=== PATIENT | male | born 1965 | race Caucasian/White ===

== ENCOUNTER → 2020-09-27 08:17 | Outpatient (BNVA) | payer BC, SELFPAY | PROVIDERS: PCP Family Medicine; Referring Provider Family Medicine; Visit Provider Specialist | DX: M25.562 Pain in left knee (principal); M25.462 Effusion, left knee | CPT/HCPCS: 73560; 73565 ==

== ENCOUNTER 2020-10-11 13:01 | Outpatient (CLI) | payer BC, SELFPAY ==
--- NOTE | 2020-10-11 13:45 | MR_ITS ---
WS: [id number] MRI LEFT KNEE HISTORY: M25.562 - Pain in left knee COMPARISON: 09/27/2020 Anterior cruciate ligament: Abnormal ACL. There is increased T2 signal throughout the proximal and di stal ACL. The posterior fibers are not evident in the distal ACL. There is increased T2 signal in the proximal ACL. Posterior cruciate ligament: Intact. Medial collateral ligament: Mild displacement by osteophytes and extruded disc. Posterior lateral corner structures: Intact. Medial menisci: Abnormal shape and signal with a small caliber posterior horn. The anterior horn is e xtruded. Lateral meniscus: Intrasubstance degeneration. No definite tears. Extensor mechanism: Distal quadriceps tendon and patellar tendons are intact. Fluid and soft tissue: Moderate-sized suprapatellar joint effusion. There is mild soft tissue edema s urrounding the knee, greatest medially. No Washington's cyst. Osseous and articular structures: Patellofemoral compartment: Mild osteophytes along the joint line. No marrow edema or full-thickness cartilage defect. Moderate osteoarthritis at the joint line. Medial compartment: Severe narrowing of the medial compartment with complete loss of cartilage. There is bone upon bone with moderate amount of marrow edema on both sides of the joint. Osteophytes and e xtruded meniscus. Lateral compartment: Mild narrowing of the lateral compartment. Joint line osteophytes with very mild thinning of the cartilage and fissuring. Moderate amount of marrow edema in the femoral condyle towa rds the intercondylar notch and also at the tibial spine. MR/MR knee LT wo con* [id number] IMPRESSION: 1. Severe internal derangement medial compartment. 2. Complete loss of cartilage with severe joint space narrowing, marrow edema, osteophytes and extruded and torn menisci in the medial compartment. 3. Additional marrow edema in the lateral femoral condyle towards the intercon dylar notch and the lateral tibial spine. 4. Abnormal ACL. High-grade tear distally and intrasubstance degeneration vers us additional tear proximally. 5. Moderate suprapatellar joint effusion. 6. Moderate patellofemoral joint osteophytosis.
== END 2020-10-11 13:02 | disposition home or self-care (01) ==
LOC: RADSHAW 13:03
PROVIDERS: PCP Family Medicine; Visit Provider Specialist
DX: M25.562 Pain in left knee (principal); M25.462 Effusion, left knee; S86.812A Strain of other muscle(s) and tendon(s) at lower leg level, left leg, initial encounter; X58.XXXA Exposure to other specified factors, initial encounter; M23.92 Unspecified internal derangement of left knee
CPT/HCPCS: 73721

== ENCOUNTER → 2022-04-14 10:18 | Outpatient (BNVA) | payer BC, SELFPAY | PROVIDERS: PCP Family Medicine; Visit Provider Nurse Practitioner Family | DX: J35.1 Hypertrophy of tonsils (principal) | CPT/HCPCS: 87071; 87880 ==

== ENCOUNTER → 2022-05-01 17:06 | Outpatient (BNVA) | payer BC, SELFPAY | PROVIDERS: PCP Family Medicine; Visit Provider Nurse Practitioner Family | DX: R50.9 Fever, unspecified (principal); Z20.822 Contact with and (suspected) exposure to COVID-19 | CPT/HCPCS: 87400; 87426 ==

== ENCOUNTER 2022-10-31 15:16 | Outpatient (CLI) | payer OTHER, SELFPAY ==
--- NOTE | 2022-10-31 15:32 | CT_ITS ---
WS: [id number] CT NECK TECHNIQUE: Contrast-enhanced CT of the neck with coronal and sagittal reformatted images. CLINICAL INFORMATION: ENLARGED/HARD TONSIL COMPARISON: None. DLP: 225.[address] scans at [facility] use at least one of these dose optimization techniques: automated e xposure control; mA and/or kV adjustment per patient size (includes targeted exams where dose is matc hed to clinical indication); or iterative reconstruction. FINDINGS: Heterogeneously enhancing mass involving the RIGHT tongue base extending to involve the RIGHT palatin e tonsil and parapharyngeal fat. This involves the pharyngeal mucosal space and uvula. Enlarged heter ogeneously enhancing RIGHT tonsil. Findings suspicious for carcinoma. Focal enhancing lesion at tongu e base measures approximately 2.0 x 1.7 cm. Enlarged RIGHT cervical chain lymph nodes suspicious for metastatic disease including RIGHT submandibular, RIGHT level 2, RIGHT level 3, and small lymph nodes in the RIGHT posterior triangle. Largest cluster of lymph nodes RIGHT level 2. Enlarged enhancing LE FT palatine tonsil. Findings can be further evaluated PET/CT Recommend direct visualization and ENT consultation. Mastoid air cells and paranasal sinuses are well aerated. Parotid glands are normal. Normal submandibular glands. Normal thyroid gland. Lung apices are well ae rated. Mild spondylitic changes cervical spine. CT/CT neck w con* [id number] IMPRESSION: 1. Heterogeneously enhancing RIGHT tongue base and palatine tonsil lesion susp icious for carcinoma. Recommend direct visualization and ENT consultation. 2. Numerous enlarged RIGHT cervical chain lymph nodes worse involving RIGHT schumacher bmandibular, level 2-3 suspicious for metastatic disease. Recommend PET/CT for staging. 3. Normal glottis and subglottic airway.
[2022-10-31] MEDS: iohexol 350 mg/mL 500 mL Btl (per mL) IV (16:02)
== END 2022-10-31 15:17 | disposition home or self-care (01) ==
LOC: RAD 15:21
PROVIDERS: PCP Family Medicine; Visit Provider Family Medicine
DX: J35.1 Hypertrophy of tonsils (principal); K14.9 Disease of tongue, unspecified; R59.0 Localized enlarged lymph nodes
CPT/HCPCS: 70491; Q9967

== ENCOUNTER → 2022-11-14 14:10 | Outpatient (BNVA) | payer OTHER, SELFPAY | PROVIDERS: PCP Family Medicine; Visit Provider Thoracic Surgery (Cardiothoracic Vascular Surgery) | DX: I83.90 Asymptomatic varicose veins of unspecified lower extremity (principal); Z87.891 Personal history of nicotine dependence | CPT/HCPCS: 99202 ==

== ENCOUNTER 2022-11-24 13:09 | Outpatient (CLI) | payer OTHER, SELFPAY ==
--- NOTE | 2022-11-24 13:30 | USCV_ITS ---
Chalo Oakes Age: 57 Gender: M : 1965 Exam Date: 11/24/2022 13:57 Ordering Phys: Navid Centeno MD (Andy) ([email or web address] [place]) Technologist: ELIZ Exam Location: [facility] Indication: HISTORY: PROCEDURES: FINDINGS: Venous reflux was noted in the popliteal veins bilaterally with a reflux time of 2.94 seconds on the right and 2.69 seconds on the left Venous reflux was noted in the superficial veins on the left side, involving the mid and distal segments of the greater saphenous vein. The reflux time 2.51 and 1.12 seconds respectively. There is diameter was 0.24 and 0.19 cm. The segments were at a depth of 0.29 and 0.25 cm from the surface. The left greater saphenous vein segment distal to the saphenofemoral junction was found to have a reflux time of 528 ms, with a diameter of 0.83 cm and at a depth of 1.66 cm CONCLUSIONS 1. No evidence of DVT in the above-mentioned identifiable veins. 2. Significant venous reflux of greater than 1000 ms were noted in both popliteal veins 3. Significant venous reflux of greater than 500 milliseconds were noted in the greater saphenous vein on the left side, involving the greater saphenous vein distal to the saphenofemoral junction, mid and distal greater saphenous vein segments. The mid and distal saphenous vein segments were found to be a small caliber and very superficial. Dr Екатерина Bro MD [facility] (Electronically Signed) Final Date: 30 November 2022 18:08 S
== END 2022-11-24 13:10 | disposition home or self-care (01) ==
LOC: RAD 13:10
PROVIDERS: PCP Family Medicine; Visit Provider Thoracic Surgery (Cardiothoracic Vascular Surgery)
DX: I83.93 Asymptomatic varicose veins of bilateral lower extremities (principal); G90.523 Complex regional pain syndrome I of lower limb, bilateral
CPT/HCPCS: 93970

== ENCOUNTER 2022-12-26 10:47 | Outpatient (CLI) | payer OTHER, SELFPAY ==
[2022-12-26 11:44] LABS: Basophils # 0.1 10^3/uL (0.0-0.1); Basophils % 1.5 %; Eosinophils # 0.2 10^3/uL (0.0-0.8); Eosinophils % 7.2 %; Hematocrit 42.8 % (42.0-52.0); Hemoglobin 13.7 g/dL (11.7-16.6); Lymphocytes # 2.1 10^3/uL (0.8-4.8); Lymphocytes % 64.1 %; Mean Corpuscular Hemoglobin 29.3 pg (28.0-34.0); Mean Corpuscular Volume 91.5 fl (80-94); Mean Platelet Volume 9.5 fL (7.4-10.4); Monocytes # 0.8 10^3/uL (0.2-0.9); Monocytes % 23.4 %; Neutrophils % 3.8 %; Nucleated Red Blood Cells % 0 %; Platelet Count 295 10^3/cmm (130-400); Red Blood Count 4.68 10^6/uL (4.1-5.3); Red Cell Distribution Width 13.3 % (12.1-15.1); White Blood Count 3.3 10^3/uL (4.0-10.0)
[2022-12-26 12:12] LABS: Anion Gap 14.8 (5-19); Blood Urea Nitrogen 19 mg/dL (6-20); Calcium 8.9 mg/dL (8.5-10.5); Carbon Dioxide 25 mmol/L (22-29); Chloride 102 mmol/L (98-107); Glomerular Filtration Rate 99.6 mL/min (90-130); Glucose 86 mg/dL (65-115); Osmolality Calculated 286 mOsm/kg (285-295); Potassium 4.8 mmol/L (3.5-5.1); Sodium 137 mmol/L (136-145)
[2022-12-26 17:06] LABS: Neutrophils # 0.13 10^3/uL (1.8-7.7)
== END 2022-12-26 10:48 | disposition home or self-care (01) ==
PROVIDERS: PCP Family Medicine; Visit Provider Specialist
DX: D37.09 Neoplasm of uncertain behavior of other specified sites of the oral cavity (principal)
CPT/HCPCS: 36415; 80048; 85025; 93005

== ENCOUNTER 2023-01-03 14:19 | Outpatient (CLI) | payer OTHER, SELFPAY ==
[2023-01-08 06:29] LABS: Lymphoma Profile (BBPL) See Report
[2023-01-11 10:24] LABS: PD-L1 (Clone 22C3) by IHC BBPL See Report
== END 2023-01-03 14:20 | disposition home or self-care (01) ==
LOC: LAB 14:21
PROVIDERS: PCP Family Medicine; Visit Provider Specialist
DX: Z01.812 Encounter for preprocedural laboratory examination (principal); J03.91 Acute recurrent tonsillitis, unspecified
CPT/HCPCS: 88184; 88185; 88304; 88331; 88341; 88342

== ENCOUNTER 2023-01-22 05:52 | Outpatient (CLI) | payer OTHER, SELFPAY ==
--- NOTE | 2023-01-20 | PETR_ITS ---
PROCEDURE INFORMATION: Exam: PET/CT Skull Base to Mid-thigh Exam date and time: 01/20/2023 12:05 PM Age: 57 years old Clinical indication: Condition or disease; Primary cancer: Malignant neoplasm of overlapping sites of tonsil; Initial oncological staging LABS AND CLINICAL REPORTS: Glucose: 95 mg/dl Treatment strategy for malignancy (PET staging): Initial Staging (PI) TECHNIQUE: Imaging protocol: Following at least four-hour fasting and following the injection of radiopharmaceutical, low dose CT images were obtained. Then, PET images were obtained. Attenuation corrected images were constructed using the CT scan. Fused images of PET and CT were reviewed. The standardized uptake values (SUV) reported below are maximum values within a region of interest, expressed in gm/ml. Exam includes orbital meatal line to mid-thigh. Radiopharmaceutical: 11.57 mCi F-18 FDG (Fluorodeoxyglucose), IV. Time of imaging post radiopharmaceutical administration: 1 hour Injection site: Right antecubital COMPARISON: CT neck w con* [id number] 10/31/2022 3:57 PM FINDINGS: Brain: Visualized brain has normal physiologic uptake. Pharynx: Bilateral palatine tonsillar uptake is noted, SUV max 9.0 on the right and 7.6 on the left. Larynx: No abnormal uptake. Lungs, pleura and trachea: No abnormal uptake. Heart: Normal physiologic uptake. Mediastinal space: No abnormal uptake. Liver: No abnormal uptake. Gallbladder and bile ducts: No abnormal uptake. Pancreas: No abnormal uptake. Spleen: No abnormal uptake. Adrenal glands: No abnormal uptake. Kidneys and ureters: Normal physiologic uptake. Stomach and bowel: No abnormal uptake. There are scattered colonic diverticula. Vasculature: No abnormal uptake. Mild atherosclerotic calcifications. Lymph nodes: There are radiotracer avid right-sided cervical lymph nodes. Examples: Deep to the right sternocleidomastoid muscle measuring 2.0 x 1.0 cm on series 3, image 40, SUV max 9.3; along the posterosuperior aspect of the right submandibular gland measuring 1.5 cm in diameter on series 3, image 43, SUV max 5.3. Mediastinal and right hilar non radiotracer avid small calcified lymph nodes are present compatible with a benign finding. Bones/joints: No abnormal uptake in the visualized axial and appendicular skeleton. There is mild diffuse vertebral body spondylosis. Soft tissues: There is an ill-defined focus of elevated uptake tongue involves the right parapharyngeal soft tissues adjacent to the base of the tongue, SUV max 12.6. METRICS: Mediastinal blood pool: SUV max 2.2 Liver uptake: SUV max 3.6 PET/PET [facility] INITIAL [id number] assessment IMPRESSION: 1. Elevated uptake in the right parapharyngeal soft tissues adjacent to and possibly involving the base of the tongue is noted (SUV max 12.6) concerning for malignancy. 2. Radiotracer avid right-sided cervical lymph nodes are noted, likely metastatic. 3. Bilateral palatine tonsillar uptake is elevated which may be inflammatory, infectious or neoplastic in etiology. 4. Colonic diverticulosis. 5. Additional nonurgent findings as detailed above.
== END 2023-01-22 05:53 | disposition home or self-care (01) ==
LOC: RAD 05:53
PROVIDERS: PCP Family Medicine; Visit Provider Specialist
DX: C09.8 Malignant neoplasm of overlapping sites of tonsil (principal); K57.90 Diverticulosis of intestine, part unspecified, without perforation or abscess without bleeding
CPT/HCPCS: 78815; A9552

== ENCOUNTER 2023-01-29 16:00 | Oncology outpatient (recurring) (ONCR) | payer OTHER, SELFPAY ==
--- NOTE | 2023-01-18 16:58 | N.ONRAD NP_ITS ---
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 Radiotherapy to date: Summary > No prior radiation therapy. Chief Complaint / History of Present Illness: He had sore throat and noted swollen tonsils. Treated with two courses of antibiotics with no improvement. Stable weight appetite and energy level. Seen by ENT. CT neck 10/31/2022 Enhancing right tonsillar and tongue base mass, enhancing left tonsil, right cervical adenopathy with at least 3 nodes none more than 2 cm size. Bilateral simple tonsillectomies Right tonsil 3.2 cm max size. Squamous cell carcinoma HPV p16 positive. Left tonsil benign. He has had some weight loss since tonsillectomy. Sore throat and oral intake improving. 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 He had routine dental evaluation two weeks ago which was satisfactory. Now scheduled to see a surgeon in [place] to consider definitive surgery. Current Medications: meloxicam 15 mg PO DAILY Allergies: NKA Medical History: No history of collagen vascular disease. No previous radiation therapy. Surgical History: Left knee surgery, left ankle skin graft surgery. Family History: Not obtained. Social History: second time x 9 years. 4 children and 2 step children. Quit smoking and and tobacco chewing 7 years ago, quit drinking 5 years ago.Works in [employer] here in [place]. 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 Enjoys fishing and is active in his latter day. Smoking and tobacco status: former smoker (quit 15 years ago ) Quit status (tobacco): has quit using tobacco Year quit tobacco: 15 years ago Second hand smoke exposure: No Alcohol intake: never Substance/Drug Use: never Household members: spouse Marital status: Current Complaints / Review of Systems: . Vital Signs: Performed on 01/18/2023 1:21 PM BMI - 28.727 kg/m2 (high), Height - 76 in, Weight - 236 lbs, Temperature - 97.9 f, Pulse - 62 /min, Respiration - 18 /min, O2 Sat - 95 % (low), Pain - 2, Fatigue - 0 and BP - 114/ 78 mm(hg). Physical Exam: Alert in NAD. Oral cavity healing tonsillectomy resection beds with granulating mucosa in both sites. Good dentition with normal mucosa and gingiva. 2 cm or so right upper cervical jugulo-digastric lymph node. Left neck and bilateral supraclav enzo regions clear. Performance Status: ECOG PS 0 ??? 1. Pathology: See above. Imaging: See HPI Impression: Favorable St I(T2 N0 M0) HPV p16+ squamous cell carcinoma of right tonsil and tongue base. I recommend definitive radiation to primary and involved nodes to 70 Gy and 54 Gy to 60 Gy to uninvolved inferior right neck, left neck and bilateral supraclavicular regions with sensitizing cisplat chemotherapy. I did not see a role for additional surgery as this presentation with HPV p16 positive disease has an anticipated excellent response with chemo-radiation. He will need to complete dental care with fluoridation trays. Med onc eval for cisplat administration and port placement. Staging PET/CT to complete disease assessment Return here for simulation Discussed the potential use of PEG tube placement. Given his excellent health, minimal weight loss and healthy lifestyle, we will plan to treat with no PEG tube placement adding a PEG only if symptoms require it. Thorough discussion with patient and . Plan: Signed by: 01/18/2023 4:56:47 PM <<Signature on File>> Time spent with patient: CPT Code: CPT Code:
== END 2023-02-01 23:59 | disposition home or self-care (01) ==
PROVIDERS: PCP Family Medicine; Visit Provider Radiology Radiation Oncology
DX: C06.89 Malignant neoplasm of overlapping sites of other parts of mouth (principal); C77.0 Secondary and unspecified malignant neoplasm of lymph nodes of head, face and neck; Z87.891 Personal history of nicotine dependence; Z53.9 Procedure and treatment not carried out, unspecified reason
CPT/HCPCS: 99205

== ENCOUNTER 2023-02-18 15:02 | Observation (INO) | payer OTHER, SELFPAY ==
[2023-02-18] VITALS (10 sets, daily range): BP systolic 97–144; BP diastolic 62–105; PULSE 54–119; RESP 16–24; O2SAT 87–100; BMI 26.6
[2023-02-18 15:45] LABS: Basophils # 0.1 10^3/uL (0.0-0.1); Basophils % 0.7 %; Eosinophils # 0.2 10^3/uL (0.0-0.8); Eosinophils % 2.1 %; Hematocrit 41.2 % (37-53); Lymphocytes # 3.1 10^3/uL (0.8-4.8); Lymphocytes % 38.6 %; Mean Corpuscular HGB Conc 31.6 g/dL (30-55); Mean Corpuscular Hemoglobin 28.4 pg (27-33); Mean Corpuscular Volume 90.2 fl (82-101); Mean Platelet Volume 9.3 fL (7.4-10.4); Monocytes # 0.5 10^3/uL (0.2-0.9); Monocytes % 5.9 %; Neutrophils # 4.21 10^3/uL (1.8-7.7); Neutrophils % 52.5 %; Nucleated Red Blood Cells % 0 %; Platelet Count 409 10^3/cmm (157-399); Red Blood Count 4.57 10^6/uL (3.85-5.65); Red Cell Distribution Width 12.9 % (12.1-15.1); White Blood Count 8.03 10^3/uL (3.29-11.43)
--- NOTE | 2023-02-18 15:46 | PC.PHAR ---
pts verified pts medications-states the pt has mobic 15mg daily but hasnt taken since around jan 02 2023 ext med history shows last filled 09/20/22 90d/s-
[2023-02-18 15:57] LABS: Partial Thromboplastin Time 28.2 SECONDS (23.9-36.7)
[2023-02-18 16:07] LABS: Alanine Aminotransferase 11 U/L (0-41); Albumin Level 4.1 g/dL (3.5-5.2); Alkaline Phosphatase 102 U/L (40-130); Anion Gap 17.5 (5-19); Aspartate Amino Transferase 11 U/L (0-40); Blood Urea Nitrogen 24 mg/dL (6-20); Calcium 9.3 mg/dL (8.5-10.5); Carbon Dioxide 25 mmol/L (22-29); Chloride 104 mmol/L (98-107); Globulin 3.6 g/dL (1.3-4.6); Glomerular Filtration Rate 56.9 mL/min (90-130); Glucose 128 mg/dL (65-115); Osmolality Calculated 300 mOsm/kg (285-295); Potassium 4.5 mmol/L (3.5-5.1); Sodium 142 mmol/L (136-145); Total Bilirubin 0.4 mg/dL (0.15-1.2); Total Protein 7.7 g/dL (6.6-8.7)
[2023-02-18 16:08] LABS: Lactic Sepsis W/Reflex 1.2 mmol/L (0.5-2.2)
[2023-02-18] MEDS: oxymetazoline 0.05% Nasal Spray 15 mL 2 SPRAY NOSTRIL-B ×2 (16:24→16:25)
--- NOTE | 2023-02-18 16:38 | PM.CONSULT ---
Providers/Reason For Consult Consulting Physician/Specialty*: Dr. Ho Scherer MD Otolaryngology, Head & Neck Surgery Reason for Consult*: Oral bleeding Requesting Physician: KIERAN MARRUFO Primary Care Provider: Griselda Rahman MD History of Present Illness History of Present Illness Chalo Oakes is a 57 year old male who has a h/o a right tonsil SCCA who underwent a right radical tonsillectomy/Right neck dissection 2 weeks ago. The patient reports that he coughed at 14:30 this afternoon after which the patient developed copious oral bleeding. I was consulted to control his oral bleeding. Review of Systems General: Reports: 10 or more systems reviewed and unremarkable except in HPI and below Medications/Allergies Home Medications Medication Instructions Recorded Confirmed Last Taken Type amoxicillin 875 mg-potassium 1 tab PO BID 02/18/23 02/18/23 02/18/23 History clavulanate 125 mg tablet ibuprofen 200 mg tablet 1,000 mg PO Q6H PRN Pain 02/18/23 02/18/23 02/18/23 History meloxicam 15 mg tablet 15 mg PO DAILY PRN Pain 02/18/23 02/18/23 01/02/23 History not taken for a whil oxycodone 5 mg tablet 5 mg PO Q4H PRN Pain 02/18/23 02/18/23 Unknown History Allergies Allergy/AdvReac Type Severity Reaction Status Date / Time No Known Allergies Allergy Verified 02/18/23 15:45 PFSH Acute PFSH: Medical History (Updated 02/18/23 @ 16:45 by Ho Scherer MD) Varicose veins of lower extremity Social History (Updated 11/14/22 @ 14:56 by Vandana Ramirez LPN) Smoking and tobacco status: former smoker (quit 15 years ago ) Quit status (tobacco): has quit using tobacco Year quit tobacco: 15 years ago Second hand smoke exposure: No Alcohol intake: never Substance/Drug Use: never Adopted: Yes Household members: spouse Marital status: Pets and animals: Yes Pets & animals: cat(s) and dog(s) Vitals/I&O/Wt Last Vital Signs Pulse 108 H 02/18/23 15:29 Resp 18 02/18/23 15:29 BP 130/96 02/18/23 15:29 Pulse Ox 97 02/18/23 15:29 O2 Del Method Room Air 02/18/23 15:29 Weight last 48 hrs Weight 99.337 kg Physical Exam Const: COMMON NORMALS: patient oriented x3 HENMT: COMMON NORMALS: atraumatic and hearing grossly normal bilaterally HEAD & SCALP: atraumatic FACE & SINUS: normal facial exam MOUTH: other (There is copious oral bleeding - unable to determine the location.) Neck/C-Spine: COMMON NORMALS: no lymphadenopathy OTHER: Well healed right neck incision. Chest: COMMONS NORMALS: normal inspection of the chest Resp: COMMON NORMALS: No use of accessory muscles and clear to auscultation bilaterally AUSCULTATION: clear to auscultation bilaterally Cardio: COMMON NORMALS: regular rate, regular rhythm and No murmurs present (Cardio) RATE: regular rate RHYTHM: regular rhythm GI: COMMON NORMALS: Normal to inspection, nondistended, normoactive bowel sounds present Extremity: COMMON NORMALS: normal to inspection Neuro: COMMON NORMALS: patient oriented x3 Data 02/18/23 15:10 02/18/23 15:10 A&P Assessment and plan (1) Tonsillar bleed: Impression: Right post tonsillectomy bleeding Plan: - Surgical control of right oral cavity bleeding under general anesthesia. I discussed this with the patient and his family and explained the potential complications. They expressed understanding and wish to proceed. Consult Attestations Medical Necessity Statement: I was consulted to assist in control of this bleeding. Coding Level of Care Code Acute Code for g Fwd Diagnoses Tonsillar bleed J35.8
[2023-02-18] MEDS: sodium chloride 0.9% 1,000 ML 999 ML IV ×2 (16:47→17:09)
[2023-02-18 16:50] LABS: Basophils % 0.4 %; Eosinophils # 0.1 10^3/uL (0.0-0.8); Eosinophils % 1.3 %; Hematocrit 35.6 % (37-53); Lymphocytes # 1.7 10^3/uL (0.8-4.8); Lymphocytes % 18.2 %; Mean Corpuscular HGB Conc 32.6 g/dL (30-55); Mean Corpuscular Hemoglobin 29.2 pg (27-33); Mean Corpuscular Volume 89.7 fl (82-101); Mean Platelet Volume 9.2 fL (7.4-10.4); Monocytes # 0.5 10^3/uL (0.2-0.9); Monocytes % 5.6 %; Neutrophils % 74.2 %; Nucleated Red Blood Cells % 0 %; Platelet Count 385 10^3/cmm (157-399); Red Blood Count 3.97 10^6/uL (3.85-5.65); Red Cell Distribution Width 12.8 % (12.1-15.1)
--- NOTE | 2023-02-18 16:51 | PC.NURSE ---
PATIENT SUCTION CANISTER FILLED WITH 700 ML, 500 ML BLOOD, 200 ML WATER FROM CLEANING SUCTION TUBING. AFTER AFRIN AND TXA, PROVIDER REMOVED BLOOD CLOTS AND ENT ARRIVED. AFTER PROVIDER LEFT, PATIENT BECAME COOL, PALE, AND DIAPHORETIC AND STATES I JUST NEED TO SLEEP. PATIENT APPEARS LETHARGIC. 2 L OF NS STARTED AT 1645. EMERGENCY BLOOD TRANSFUSION STARTED AT 1651. 1651: HR 77, RR 18, TEMP 97.8 AXILLARY, O2 92%, BP 117/81 1656: HR 70, RR 18, TEMP 97.7 AXILLARY, O2 94%, BP 109/84, PATIENT STATES HE FEELS BETTER.
--- NOTE | 2023-02-18 16:55 | ED.PEDHENT ---
HPI - Pediatric HENT General: Chief complaint: Dental/Oral Stated complaint: tonsilectomy/stitches ripped Time Seen by Provider: 02/18/23 15:08 History of Present Illness: 57-year-old male presents emergency room with significant postop bleeding. According to patient's patient had tonsillectomy and throat cancer removed on the fifth of this month at [facility] in [place]. Continues patient has been doing okay until few hours ago when he started bleeding profusely. Upon present emergency room patient able to speak due to large blood clot in his mouth. Patient is awake alert without any obvious acute distress. Pediatric ROS Review of Systems: ROS UNOBTAINABLE: other (Active bleeding) PFS ED PFSH: Medical History (Updated 02/20/23 @ 00:02 by BIA Tracy) Varicose veins of lower extremity Social History (Updated 11/14/22 @ 14:56 by Vandana Ramirez LPN) Smoking and tobacco status: former smoker (quit 15 years ago ) Quit status (tobacco): has quit using tobacco Year quit tobacco: 15 years ago Second hand smoke exposure: No Alcohol intake: never Substance/Drug Use: never Adopted: Yes Household members: spouse Marital status: Pets and animals: Yes Pets & animals: cat(s) and dog(s) Pediatric Exam Const: Constitutional General: cooperative, well developed, alert and awake HENMT: Mouth: other (Mouth is full of large clot unable to visualize the tonsillar area or poste) Neck: Neck: normal visual inspection, full ROM, no lymphadenopathy and no meningeal signs Chest: Chest: normal inspection of the chest Resp: Effort & Inspection: normal respiratory effort and able to speak in complete sentences Cardio: Jugular venous distension: no JVD Palpation: normal PMI Rate: regular rate Rhythm: regular rhythm Heart sounds: S1 normal heart sound present and S2 normal heart sound present GI: Inspection: Yes normal to inspection, No abdominal distension, No fistulous tract, No incision and No Laceration(s) present (GI) Skin: General: no rashes or lesions noted, turgor normal, no mottling, no purpura and No pallor Wounds: no fistulous tracts Neuro: General: Yes No meningeal signs Course Reevaluation(s): Reevaluation #1: Upon reassessment patient appears to be stable without any acute distress patient appears to be diaphoretic after significant bleeding. Blood transfusion was started. Reevaluation #2: At 4:[address] Crowe at bedside and will take patient to the OR for further evaluation and treatment. Consultations: Consultation #1: At 3 PM spoke with local ENT Consultation #2: at [address] Vazquez at [facility] in [place]. Recommended Afrin application and tranxanuc acid neb. I discussed this with the pharmacist and apparently we do not have nebulizer formula in this ER. She was given IV medication. Consultation #3: At 3:40 PM I discussed the patient with Dr. Vazquez again to inform her that the ENT will be come to see patient and will keep him up-to-date about further treatment. Vital Signs: Vital signs: Vital Signs Pulse Rate 64 02/19/23 07:56 Respiratory Rate 24 H 02/19/23 07:56 Blood Pressure 120/91 02/19/23 07:56 Pulse Oximetry 96 02/19/23 07:56 Oxygen Delivery Me thod Room Air 02/18/23 18:02 Medical Decision Making Medical Decision Making Patient was made comfortable emergency room and underwent continuous monitoring by nurse. The large blood clot from his was evacuated with some suctioning. I discussed patient with Dr. Vazquez from [facility]. Edilia patient with our local ENT. Discussed patient and plan/treatment with family and friends. Differential Diagnosis Acute bleed, tonsillectomy bleed, Lab Data 02/19/23 05:28 02/18/23 16:54 Laboratory Results WBC 9.30 10^3/uL (3.29-11.43) 02/18/23 16:40 RBC 3.97 10^6/uL (3.85-5.65) 02/18/23 16:40 Hgb 11.60 g/dL (11.27-16.99) 02/18/23 16:40 Hct 35.6 % (37-53) L 02/18/23 16:40 MCV 89.7 fl (82-101) 02/18/23 16:40 MCH 29.2 pg (27-33) 02/18/23 16:40 MCHC 32.6 g/dL (30-55) 02/18/23 16:40 RDW 12.8 % (12.1-15.1) 02/18/23 16:40 Plt Count 385 10^3/cmm (157-399) 02/18/23 16:40 MPV 9.2 fL (7.4-10.4) 02/18/23 16:40 Neut % (Auto) 74.2 % 02/18/23 16:40 Lymph % (Auto) 18.2 % 02/18/23 16:40 Amador % (Auto) 5.6 % 02/18/23 16:40 Eos % (Auto) 1.3 % 02/18/23 16:40 Baso % (Auto) 0.4 % 02/18/23 16:40 Neut # (Auto) 6.90 10^3/uL (1.8-7.7) 02/18/23 16:40 Lymph # (Auto) 1.7 10^3/uL (0.8-4.8) 02/18/23 16:40 Amador # (Auto) 0.5 10^3/uL (0.2-0.9) 02/18/23 16:40 Eos # (Auto) 0.1 10^3/uL (0.0-0.8) 02/18/23 16:40 Baso # (Auto) 0.0 10^3/uL (0.0-0.1) 02/18/23 16:40 Nucleated RBC % (auto) 0 % 02/18/23 16:40 Nucleated RBCs # 0.0 /100WBC 02/18/23 16:40 APTT 28.2 SECONDS (23.9-36.7) 02/18/23 15:10 Sodium 142 mmol/L (136-145) 02/18/23 16:54 Potassium 4.2 mmol/L (3.5-5.1) 02/18/23 16:54 Chloride 109 mmol/L (98-107) H 02/18/23 16:54 Carbon Dioxide 24 mmol/L (22-29) 02/18/23 16:54 Anion Gap 13.2 (5-19) 02/18/23 16:54 BUN 26 mg/dL (6-20) H 02/18/23 16:54 Creatinine 1.3 mg/dL (0.7-1.2) H 02/18/23 16:54 GFR Calculation 56.9 mL/min (90-130) L 02/18/23 16:54 Glucose 181 mg/dL (65-115) H 02/18/23 16:54 Calculated Osmolality 303 mOsm/kg (285-295) H 02/18/23 16:54 Lactic Acid 1.2 mmol/L (0.5-2.2) 02/18/23 15:10 Calcium 8.5 mg/dL (8.5-10.5) 02/18/23 16:54 Total Bilirubin 0.2 mg/dL (0.15-1.2) 02/18/23 16:54 AST 8 U/L (0-40) 02/18/23 16:54 ALT 8 U/L (0-41) 02/18/23 16:54 Alkaline Phosphatase 80 U/L (40-130) 02/18/23 16:54 Total Protein 6.5 g/dL (6.6-8.7) L 02/18/23 16:54 Albumin 3.6 g/dL (3.5-5.2) 02/18/23 16:54 Globulin 2.9 g/dL (1.3-4.6) 02/18/23 16:54 Blood Type A Positive 02/18/23 15:53 Rho(D) Type Positive 02/18/23 15:53 Antibody Screen Negative 02/18/23 15:53 Crossmatch See Detail 02/18/23 15:53 No radiology studies performed this visit Critical Care Time Critical Care Time: Critical Care Time: Yes Total Critical Care Time: 45 Attestation: Time spent reassessing patient on multiple occasion. Time spent discussing patient with family and friends. Time spent discussing patient with specialist. Time spent reviewing past medical history medication list. Discharge Plan Discharge Patient Disposition: Admitted As Inpatient Admit Provider: Ho Scherer Clinical Impression: Active bleeding, Post-tonsillectomy hemorrhage Condition: Stable Discharge Diet: Advance as tolerated Coding Level of Care Code ED Brass Sorter for Bentley Ruggiero
--- NOTE | 2023-02-18 17:08 | PC.NURSE ---
BLOOD FINISHED TRANSFUSING AT 1705. PATIENT WARM AND PINK. PATIENT STATES THAT HE IS FEELING BETTER. HR 66, BP 128/73, O2 95%.
[2023-02-18 17:16] LABS: Alanine Aminotransferase 8 U/L (0-41); Albumin Level 3.6 g/dL (3.5-5.2); Alkaline Phosphatase 80 U/L (40-130); Anion Gap 13.2 (5-19); Aspartate Amino Transferase 8 U/L (0-40); Blood Urea Nitrogen 26 mg/dL (6-20); Calcium 8.5 mg/dL (8.5-10.5); Carbon Dioxide 24 mmol/L (22-29); Chloride 109 mmol/L (98-107); Globulin 2.9 g/dL (1.3-4.6); Glomerular Filtration Rate 56.9 mL/min (90-130); Glucose 181 mg/dL (65-115); Osmolality Calculated 303 mOsm/kg (285-295); Potassium 4.2 mmol/L (3.5-5.1); Sodium 142 mmol/L (136-145); Total Bilirubin 0.2 mg/dL (0.15-1.2); Total Protein 6.5 g/dL (6.6-8.7)
[2023-02-18] MEDS: ceFAZolin 2,000 MG in sodium chloride 0.9% (plus) 50 ML 100 MG IV (17:21)
[2023-02-18] MEDS: lidocaine-epi 1% 20 mL INJ INJECTION (17:33)
[2023-02-18] MEDS: silver nitrate applicator 2 EACH TOPICAL (17:34)
--- NOTE | 2023-02-18 17:51 | P.ANESASSM_ITS ---
Pre-Anesthetic Assessment Height/Weight: Height 1.93 m Weight 99.337 kg Pulse Resp BP Pulse Ox O2 Del Method 66 18 128/73 95 Room Air 02/18/23 17:11 02/18/23 17:11 02/18/23 17:11 02/18/23 17:11 02/18/23 15:29 Operation Date: 02/18/23 17:55 Proposed Procedures p Tonsillectomy Postop Bleed Control(Not Applicable) - Ho Scherer MD Familial anesthetic complications: PONV Was Beta Vikas taken within 24 hours: N/A Was Clonidine taken within 24 hours: N/A Social No alcohol and No tobacco Exam alert, oriented x 3, clear to auscultation bilaterally and regular rate & rhythm Airway Submandibular: within normal limits Cervical ROM: within normal limits Mallampati: Class II Dentition: full CV/HEM Post tonsillar bleeding, hemodynamically stable, H?H adequate Musc/skel Osteoarthritis/DJD Anesthetic Plan ASA status: 3E Anesthesia: General (RSI) Medications/Allergies Home Medications Medication Instructions Recorded Confirmed Last Taken Type amoxicillin 875 mg-potassium 1 tab PO BID 02/18/23 02/18/23 02/18/23 History clavulanate 125 mg tablet ibuprofen 200 mg tablet 1,000 mg PO Q6H PRN Pain 02/18/23 02/18/23 02/18/23 History meloxicam 15 mg tablet 15 mg PO DAILY PRN Pain 02/18/23 02/18/23 01/02/23 History not taken for a whil oxycodone 5 mg tablet 5 mg PO Q4H PRN Pain 02/18/23 02/18/23 Unknown History Allergies Allergy/AdvReac Type Severity Reaction Status Date / Time No Known Allergies Allergy Verified 02/18/23 15:45 Current Medications Generic Name Dose Route Start Last Admin Trade Name Freq PRN Reason Stop Dose Admin Sodium Chloride 1,000 mls @ 999 mls/hr 02/18/23 17:00 02/18/23 17:10 Sodium Chloride 0.9% IV 02/18/23 19:00 Infused .Q1H1M FABI Infusion Cefazolin Sodium 2,000 mg/ 50 mls @ 100 mls/hr 02/18/23 17:00 02/18/23 17:21 Sodium Chloride IV 02/19/23 01:29 100 mls/hr Q8H FABI Administration Protocol [facility] Anesthesia Medical History (Updated 02/18/23 @ 16:58 by Reina Melo MD) Varicose veins of lower extremity Social History (Updated 11/14/22 @ 14:56 by Vandana Ramirez LPN) Smoking and tobacco status: former smoker (quit 15 years ago ) Quit status (tobacco): has quit using tobacco Year quit tobacco: 15 years ago Second hand smoke exposure: No Alcohol intake: never Substance/Drug Use: never Adopted: Yes Household members: spouse Marital status: Pets and animals: Yes Pets & animals: cat(s) and dog(s) Data Anesthesia 02/18/23 16:40 02/18/23 16:54 Short CBC 02/18/23 02/18/23 Range/Units 15:10 16:40 WBC 8.03 9.30 (3.29-11.43) 10^3/uL Hgb 13.00 11.60 (11.27-16.99) g/dL Hct 41.2 35.6 L (37-53) % MCV 90.2 89.7 (82-101) fl Plt Count 409 H 385 (157-399) 10^3/cmm Neut % (Auto) 52.5 74.2 % Neut # (Auto) 4.21 6.90 (1.8-7.7) 10^3/uL BMP 02/18/23 02/18/23 15:10 16:54 Sodium 142 142 Potassium 4.5 4.2 Chloride 104 109 H Carbon Dioxide 25 24 BUN 24 H 26 H Creatinine 1.3 H 1.3 H Glucose 128 H 181 H Calcium 9.3 8.5 Liver Function 02/18/23 02/18/23 Range/Units 15:10 16:54 Total Bilirubin 0.4 0.2 (0.15-1.2) mg/dL AST 11 8 (0-40) U/L ALT 11 8 (0-41) U/L Alkaline Phosphatase 102 80 (40-130) U/L Albumin 4.1 3.6 (3.5-5.2) g/dL Blood Bank 02/18/23 15:53 Blood Type A Positive Rho(D) Type Positive Coags 02/18/23 15:10 APTT 28.2 Cardiac Studies: No Data to Display
--- NOTE | 2023-02-18 17:52 | ANE.PACU2 ---
Inpatient post-anesthesia follow up: Airway intact: Yes Vital signs: Temperature Pulse Rate 66 Respiratory Rate 18 Blood Pressure 128/73 Pulse Oximetry 95 Oxygen Delivery Me thod Room Air Oxygen Flow Rate Fraction of Inspir ed Oxygen Hydration adequate: Yes Nausea and vomiting: No Pain level: 2 Mental status: Baseline
--- NOTE | 2023-02-18 18:02 | PM.OP ---
Operative Report Date of procedure: February 18, 2023 Pre-op diagnosis: Right post tonsillectomy bleeding Post-op diagnosis: same Post-op findings: Right post tonsillectomy bleeding, superior pole Procedure done: Surgical control of right post tonsillectomy bleeding Implants: None Specimens removed/disposition: None Pathology: none sent Surgeon: Ho Scherer Surgeon: Ho Scherer MD Senior Net Application Developer: Carla Velazquez Anesthesia: General Estimated blood loss (mL): 5 IV fluids (mL): 2,000 Complications: None Findings: Right superior pole tonsillar fossa bleeding Healing post surgical findings of the right tonsillar fossa Condition: stable Disposition: ICU Brief History: 57 yo wm with a h/o SCCA of the right tonsil who underwent a radical right tonsillectomy and right neck dissection 2 weeks ago. The patient developed spontaneous oral bleeding on the right this afternoon and presents for surgical therapy. Procedure: The patient was identified in the preoperative holding area and was taken to the operating where he was placed on the operating table in the supine position. Anesthesia was obtained with general endotracheal anesthesia and the table was then turned 90 degrees patient's left. The patient was then prepped and draped in the usual sterile fashion. A McIvor mouthgag was placed in the patient's oral cavity and he was placed in the Elaine position. The right oral cavity wound was inspected and the area of active bleeding in the superior pole was cauterized with a combination of bipolar cautery, Coblation Cautery, and silver nitrate cautery. The patient had some scattered bleeding the right tonsillar fossa from granulation tissue which was cauterized with silver nitrate. Once this was accomplished the patient's oral cavity was irrigated with a copious amount normal saline. The wound was inspected and hemostasis was found to be adequate. At this point an orogastric tube was passed and the patient's stomach contents were evacuated. The wound was reinspected for hemostasis that was found to be adequate. At this point the patient was taken off suspension and the mouthgag was atraumatically released and removed. The procedure was then terminated and control of the patient was returned to anesthesia where he underwent an uneventful reversal of anesthesia and extubation and was taken to the intensive care unit in stable condition. There were no operative or anesthetic complications
[2023-02-18] MEDS: famotidine 20 mg/2 mL INJ IVP (18:33)
[2023-02-18] MEDS: lactated ringers 1,000 ML 125 ML IV (18:33)
[2023-02-18 19:34] LABS: Basophils # 0.1 10^3/uL (0.0-0.1); Basophils % 0.4 %; Eosinophils % 0.2 %; Hematocrit 41.6 % (37-53); Lymphocytes # 1.1 10^3/uL (0.8-4.8); Lymphocytes % 8.5 %; Mean Corpuscular HGB Conc 30.3 g/dL (30-55); Mean Corpuscular Hemoglobin 29.4 pg (27-33); Mean Corpuscular Volume 97.2 fl (82-101); Mean Platelet Volume 9.2 fL (7.4-10.4); Monocytes # 0.3 10^3/uL (0.2-0.9); Monocytes % 2.4 %; Neutrophils # 11.23 10^3/uL (1.8-7.7); Neutrophils % 87.8 %; Nucleated Red Blood Cells % 0 %; Platelet Count 348 10^3/cmm (157-399); Red Blood Count 4.28 10^6/uL (3.85-5.65); Red Cell Distribution Width 13.2 % (12.1-15.1)
--- NOTE | 2023-02-19 05:17 | PM.PN ---
Subjective Subjective: 57 yo wm who is POD #1 s/p surgical control of post tonsillectomy bleeding following a radical tonsillectomy. The patient reports that he is doing well this morning: he has minimal pain, is swallowing well, and has noted no bleeding. The patient is o/w without c/o. Medications: Reviewed: Yes Vitals/I&O/Wt Last Vital Signs Pulse 64 02/18/23 18:30 Resp 24 H 02/18/23 18:30 BP 120/91 02/18/23 18:30 Pulse Ox 96 02/18/23 18:30 O2 Del Method Room Air 02/18/23 18:02 02/18/23 02/18/23 02/19/23 14:59 22:59 06:59 Intake Total 2340 / 2340 180 / 2520 Output Total 350 / 350 725 / 1075 Balance 1989 / 1989 -545 / 1445 Weight last 48 hrs Weight 99.337 kg Physical Exam Const: COMMON NORMALS: no acute distress, patient oriented x3, healthy appearing and alert HENMT: COMMON NORMALS: normocephalic, atraumatic and Normal external nose present HEAD & SCALP: normocephalic and atraumatic FACE & SINUS: normal facial exam NOSE: Normal external nose present MOUTH: other (There is no oral bleeding noted. ) Eye: COMMON NORMALS: conjunctivae normal and no scleral icterus CONJUNCTIVA: Yes conjunctivae normal Neck/C-Spine: COMMON NORMALS: full ROM and no lymphadenopathy Chest: COMMONS NORMALS: normal inspection of the chest and normal palpation of entire chest wall Resp: COMMON NORMALS: normal respiratory effort, No retractions, No use of accessory muscles and clear to auscultation bilaterally AUSCULTATION: clear to auscultation bilaterally Cardio: COMMON NORMALS: regular rate, regular rhythm and No murmurs present (Cardio) RATE: regular rate RHYTHM: regular rhythm GI: COMMON NORMALS: Normal to inspection, nondistended, normoactive bowel sounds present Extremity: COMMON NORMALS: normal to inspection Neuro: COMMON NORMALS: patient oriented x3 SENSORIUM/ORIENTATION: Yes alert Data 02/18/23 19:11 02/18/23 16:54 A&P Assessment and plan (1) Post-tonsillectomy hemorrhage: Impression: POD #1 s/p surgical control of right post tonsillectomy bleeding - now doing well Plan: - Resume all prior medications except as noted below - Avoid NSAIDs for 3 weeks - F/U with Dr. Scherer in 2 weeks - F/U with Dr. Simmons this week - Notify Dr. Scherer for any problems Attestations Medical Necessity Statement*: The patient was observed overnight after a post tonsillectomy bleed Coding Level of Care Code Acute Code for Chg Fwd Diagnoses Post-tonsillectomy hemorrhage J95.830
[2023-02-19 05:36] LABS: Basophils % 0.4 %; Hematocrit 34.6 % (37-53); Lymphocytes # 1.8 10^3/uL (0.8-4.8); Lymphocytes % 25.3 %; Mean Corpuscular HGB Conc 31.2 g/dL (30-55); Mean Corpuscular Hemoglobin 28.9 pg (27-33); Mean Corpuscular Volume 92.5 fl (82-101); Mean Platelet Volume 9.1 fL (7.4-10.4); Monocytes # 0.4 10^3/uL (0.2-0.9); Monocytes % 5.5 %; Neutrophils # 4.95 10^3/uL (1.8-7.7); Neutrophils % 68.7 %; Nucleated Red Blood Cells % 0 %; Platelet Count 337 10^3/cmm (157-399); Red Blood Count 3.74 10^6/uL (3.85-5.65); Red Cell Distribution Width 13.4 % (12.1-15.1); White Blood Count 7.22 10^3/uL (3.29-11.43)
[2023-02-19] MEDS: famotidine 20 mg/2 mL INJ IVP (06:25)
[2023-02-19 07:56] VITALS: BP 120/91; PULSE 64; RESP 24; O2SAT 96
== END 2023-02-19 08:35 | disposition home or self-care (01) ==
LOC: ER 16:49 → OR 16:52 → ICU 02-19 05:26
PROVIDERS: Admitting Provider Specialist; Emergency Provider Family Medicine; PCP Family Medicine; Visit Provider Specialist
PROC: (CPT 42960; principal; 2023-02-18 17:45)
DX: J95.830 Postprocedural hemorrhage of a respiratory system organ or structure following a respiratory system procedure (principal); Z87.891 Personal history of nicotine dependence; J35.8 Other chronic diseases of tonsils and adenoids
CPT/HCPCS: 42961; 36415; 80048; 80053; 83605; 85025; 85730; 86850; 86900; 86920; 96374; 99285; 99291; 99292; G0378; J0330; J0690; J1100; J2371; J2405; J2704; J3010; J3490; J7030; J7120; P9016

== ENCOUNTER → 2023-03-08 13:28 | Outpatient (BNVA) | payer OTHER, SELFPAY | PROVIDERS: PCP Family Medicine; Referring Provider Internal Medicine Medical Oncology; Visit Provider Surgery | DX: C09.9 Malignant neoplasm of tonsil, unspecified (principal) | CPT/HCPCS: 99203 ==

== ENCOUNTER 2023-03-28 15:30 | Oncology outpatient (recurring) (ONCR) | payer OTHER, SELFPAY ==
[2023-03-06 09:57] LABS: Basophils # 0.1 10^3/uL (0.0-0.1); Basophils % 1.6 %; Eosinophils # 0.2 10^3/uL (0.0-0.8); Eosinophils % 6.6 %; Hematocrit 38.7 % (37-53); Lymphocytes # 2.1 10^3/uL (0.8-4.8); Lymphocytes % 66.5 %; Mean Corpuscular HGB Conc 32.3 g/dL (30-55); Mean Corpuscular Hemoglobin 29.2 pg (27-33); Mean Corpuscular Volume 90.4 fl (82-101); Monocytes # 0.7 10^3/uL (0.2-0.9); Monocytes % 20.6 %; Neutrophils % 4.7 %; Nucleated Red Blood Cells % 0 %; Platelet Count 384 10^3/cmm (157-399); Red Blood Count 4.28 10^6/uL (3.85-5.65); Red Cell Distribution Width 13.1 % (12.1-15.1); White Blood Count 3.16 10^3/uL (3.29-11.43)
[2023-03-06 10:28] LABS: Alanine Aminotransferase 14 U/L (0-41); Albumin Level 4.2 g/dL (3.5-5.2); Alkaline Phosphatase 107 U/L (40-130); Aspartate Amino Transferase 11 U/L (0-40); Blood Urea Nitrogen 11 mg/dL (6-20); Calcium 9.5 mg/dL (8.5-10.5); Carbon Dioxide 27 mmol/L (22-29); Chloride 101 mmol/L (98-107); Globulin 3.5 g/dL (1.3-4.6); Glomerular Filtration Rate 99.6 mL/min (90-130); Glucose 92 mg/dL (65-115); Osmolality Calculated 285 mOsm/kg (285-295); Sodium 138 mmol/L (136-145); Thyroid Stimulating Hormone 2.89 uIU/mL (0.27-4.20); Total Bilirubin 0.2 mg/dL (0.15-1.2); Total Protein 7.7 g/dL (6.6-8.7)
[2023-03-06 11:22] LABS: Anion Gap 14.3 (5-19); Potassium 4.3 mmol/L (3.5-5.1)
[2023-03-06 11:44] LABS: Neutrophils # 0.15 10^3/uL (1.8-7.7)
[2023-03-09 09:10] VITALS: BP 107/77; PULSE 72; RESP 16; TEMP 36.4; O2SAT 98
[2023-03-09 09:33] LABS: Basophils % 1.2 %; Eosinophils # 0.2 10^3/uL (0.0-0.8); Eosinophils % 6.1 %; Hematocrit 37.1 % (37-53); Lymphocytes # 2.3 10^3/uL (0.8-4.8); Mean Corpuscular HGB Conc 32.6 g/dL (30-55); Mean Corpuscular Hemoglobin 29.2 pg (27-33); Mean Corpuscular Volume 89.4 fl (82-101); Monocytes # 0.6 10^3/uL (0.2-0.9); Monocytes % 19.3 %; Neutrophils % 3.4 %; Nucleated Red Blood Cells % 0 %; Platelet Count 370 10^3/cmm (157-399); Red Blood Count 4.15 10^6/uL (3.85-5.65); Red Cell Distribution Width 13.1 % (12.1-15.1); White Blood Count 3.27 10^3/uL (3.29-11.43)
[2023-03-09 10:15] LABS: Neutrophils # 0.11 10^3/uL (1.8-7.7)
--- NOTE | 2023-03-09 10:18 | PC.NURSE ---
Received call from lab with critical ANC of 0.11. Notified Dr. Titus's nurse, Angelina CEBALLOS. She will give to Mindi Lee NP
[2023-03-09 10:19] LABS: LAB Peripheral Smear Sent for Review
[2023-03-13 15:02] VITALS: BP 116/75; PULSE 77; RESP 16; TEMP 36.9; O2SAT 95
[2023-03-13 15:38] LABS: Basophils % 1.4 %; Eosinophils # 0.1 10^3/uL (0.0-0.8); Eosinophils % 4.7 %; Hematocrit 36.5 % (37-53); Lymphocytes # 2.2 10^3/uL (0.8-4.8); Mean Corpuscular HGB Conc 32.3 g/dL (30-55); Mean Corpuscular Hemoglobin 29.2 pg (27-33); Mean Corpuscular Volume 90.3 fl (82-101); Mean Platelet Volume 9.3 fL (7.4-10.4); Monocytes # 0.5 10^3/uL (0.2-0.9); Monocytes % 15.9 %; Neutrophils % 2.7 %; Nucleated Red Blood Cells % 0 %; Platelet Count 325 10^3/cmm (157-399); Red Blood Count 4.04 10^6/uL (3.85-5.65); Red Cell Distribution Width 13.2 % (12.1-15.1); White Blood Count 2.96 10^3/uL (3.29-11.43)
[2023-03-13 15:55] LABS: Neutrophils # 0.08 10^3/uL (1.8-7.7)
[2023-03-13 16:10] LABS: Alanine Aminotransferase 15 U/L (0-41); Albumin Level 3.9 g/dL (3.5-5.2); Alkaline Phosphatase 95 U/L (40-130); Anion Gap 15.1 (5-19); Aspartate Amino Transferase 12 U/L (0-40); Blood Urea Nitrogen 20 mg/dL (6-20); Calcium 9.2 mg/dL (8.5-10.5); Carbon Dioxide 24 mmol/L (22-29); Chloride 104 mmol/L (98-107); Globulin 3.4 g/dL (1.3-4.6); Glucose 122 mg/dL (65-115); Osmolality Calculated 292 mOsm/kg (285-295); Potassium 4.1 mmol/L (3.5-5.1); Sodium 139 mmol/L (136-145); Total Bilirubin 0.3 mg/dL (0.15-1.2); Total Protein 7.3 g/dL (6.6-8.7)
[2023-03-13 16:25] LABS: Vitamin B12 340 pg/mL (232-1245)
[2023-03-13 16:26] LABS: Folate Level 16.2 ng/mL (4.5-32.2)
[2023-03-15 23:14] LABS: Lupus DRVVT Confirm NEGATIVE (NEGATIVE)
[2023-03-15 23:26] LABS: PTT-LA-Screen 37 sec (< OR = 40)
[2023-03-16 11:59] LABS: Anti-Nuclear Antibody Screen NEGATIVE (NEGATIVE)
[2023-03-28 15:37] LABS: Basophils % 1.3 %; Eosinophils # 0.1 10^3/uL (0.0-0.8); Eosinophils % 3.9 %; Hematocrit 39.8 % (37-53); Lymphocytes # 2.1 10^3/uL (0.8-4.8); Mean Corpuscular HGB Conc 31.9 g/dL (30-55); Mean Corpuscular Hemoglobin 29.3 pg (27-33); Mean Corpuscular Volume 91.9 fl (82-101); Mean Platelet Volume 9.2 fL (7.4-10.4); Monocytes # 0.5 10^3/uL (0.2-0.9); Monocytes % 15.7 %; Neutrophils % 10.8 %; Nucleated Red Blood Cells % 0 %; Platelet Count 315 10^3/cmm (157-399); Red Blood Count 4.33 10^6/uL (3.85-5.65); White Blood Count 3.06 10^3/uL (3.29-11.43)
[2023-03-28 16:03] LABS: Neutrophils # 0.33 10^3/uL (1.8-7.7)
== END 2023-04-03 23:59 | disposition home or self-care (01) ==
PROVIDERS: Internal Medicine Medical Oncology; Nurse Practitioner Family; PCP Family Medicine; Visit Provider Radiology Radiation Oncology
DX: C09.9 Malignant neoplasm of tonsil, unspecified (principal)
CPT/HCPCS: 36415; 77300; 77301; 77334; 77338; 80053; 82607; 82746; 84439; 84443; 85025; 85613; 85730; 86038; 99205

== ENCOUNTER 2023-05-02 08:18 | Oncology outpatient (recurring) (ONCR) | payer OTHER, SELFPAY ==
[2023-04-19 10:05] LABS: Basophils # 0.1 10^3/uL (0.0-0.1); Eosinophils # 0.2 10^3/uL (0.0-0.8); Eosinophils % 4.2 %; Hematocrit 43.4 % (37-53); Lymphocytes # 2.6 10^3/uL (0.8-4.8); Lymphocytes % 73.5 %; Mean Corpuscular HGB Conc 32.5 g/dL (30-55); Mean Corpuscular Hemoglobin 29.4 pg (27-33); Mean Corpuscular Volume 90.4 fl (82-101); Monocytes # 0.6 10^3/uL (0.2-0.9); Monocytes % 15.4 %; Neutrophils % 4.9 %; Nucleated Red Blood Cells % 0 %; Platelet Count 312 10^3/cmm (157-399); Red Cell Distribution Width 13.3 % (12.1-15.1); White Blood Count 3.58 10^3/uL (3.29-11.43)
[2023-04-19 10:17] LABS: Neutrophils # 0.18 10^3/uL (1.8-7.7)
[2023-04-19 11:18] VITALS: BP 122/86; PULSE 81; RESP 18; TEMP 36.6; O2SAT 99
[2023-04-19] MEDS: filgrastim-sndz 480 mcg/0.8 mL Syringe SUBCUT (11:23)
[2023-04-20] MEDS: filgrastim-sndz 480 mcg/0.8 mL Syringe SUBCUT (11:00)
[2023-04-21 09:04] VITALS: BP 133/87; PULSE 80; RESP 16; TEMP 36.6; O2SAT 99
[2023-04-21] MEDS: filgrastim-sndz 480 mcg/0.8 mL Syringe SUBCUT (09:21)
[2023-04-22 08:58] VITALS: BP 130/94; PULSE 77; RESP 16; TEMP 36.7; O2SAT 95
[2023-04-22] MEDS: filgrastim-sndz 480 mcg/0.8 mL Syringe SUBCUT (09:29)
[2023-04-23 11:00] VITALS: BP 144/89; PULSE 88; RESP 16; TEMP 36.5; O2SAT 98
[2023-04-23 11:07] LABS: Basophils # 0.3 10^3/uL (0.0-0.1); Basophils % 0.7 %; Eosinophils # 0.6 10^3/uL (0.0-0.8); Eosinophils % 1.7 %; Hematocrit 42.1 % (37-53); Lymphocytes # 4.7 10^3/uL (0.8-4.8); Lymphocytes % 13.5 %; Mean Corpuscular HGB Conc 32.5 g/dL (30-55); Mean Corpuscular Hemoglobin 29.8 pg (27-33); Mean Corpuscular Volume 91.5 fl (82-101); Mean Platelet Volume 9.3 fL (7.4-10.4); Monocytes # 1.8 10^3/uL (0.2-0.9); Monocytes % 5.1 %; Neutrophils # 26.34 10^3/uL (1.8-7.7); Neutrophils % 75.4 %; Nucleated Red Blood Cells % 0 %; Platelet Count 283 10^3/cmm (157-399)
[2023-04-23 11:24] LABS: Alanine Aminotransferase 29 U/L (0-41); Albumin Level 4.1 g/dL (3.5-5.2); Alkaline Phosphatase 225 U/L (40-130); Anion Gap 15.3 (5-19); Aspartate Amino Transferase 20 U/L (0-40); Blood Urea Nitrogen 9 mg/dL (6-20); Calcium 9.5 mg/dL (8.5-10.5); Carbon Dioxide 26 mmol/L (22-29); Chloride 103 mmol/L (98-107); Globulin 3.4 g/dL (1.3-4.6); Glucose 155 mg/dL (65-115); Osmolality Calculated 292 mOsm/kg (285-295); Potassium 4.3 mmol/L (3.5-5.1); Sodium 140 mmol/L (136-145); Total Bilirubin 0.2 mg/dL (0.15-1.2); Total Protein 7.5 g/dL (6.6-8.7)
[2023-04-23 11:39] LABS: White Blood Count 34.93 10^3/uL (3.29-11.43)
--- NOTE | 2023-04-23 12:17 | PC.NURSE ---
labs faxed to [facility] Dr Nirav Talley with no Zarxio injection today .Copy of labs given to him with the plan to be in [facility] on 04-30 for follow up.mm
[2023-04-25 09:20] VITALS: BP 118/85; PULSE 72; RESP 16; TEMP 36.3; O2SAT 94
[2023-04-25 09:40] LABS: Basophils # 0.1 10^3/uL (0.0-0.1); Basophils % 1.1 %; Eosinophils # 0.3 10^3/uL (0.0-0.8); Eosinophils % 3.9 %; Hematocrit 42.5 % (37-53); Lymphocytes # 2.6 10^3/uL (0.8-4.8); Lymphocytes % 41.3 %; Mean Corpuscular HGB Conc 32.5 g/dL (30-55); Mean Corpuscular Hemoglobin 29.5 pg (27-33); Mean Corpuscular Volume 90.8 fl (82-101); Mean Platelet Volume 9.3 fL (7.4-10.4); Monocytes # 0.7 10^3/uL (0.2-0.9); Monocytes % 10.6 %; Neutrophils % 39.5 %; Nucleated Red Blood Cells % 0 %; Platelet Count 264 10^3/cmm (157-399); Red Blood Count 4.68 10^6/uL (3.85-5.65); Red Cell Distribution Width 13.8 % (12.1-15.1); White Blood Count 6.34 10^3/uL (3.29-11.43)
[2023-04-25 10:01] LABS: Alanine Aminotransferase 37 U/L (0-41); Albumin Level 4.2 g/dL (3.5-5.2); Alkaline Phosphatase 176 U/L (40-130); Anion Gap 14.6 (5-19); Aspartate Amino Transferase 25 U/L (0-40); Blood Urea Nitrogen 12 mg/dL (6-20); Calcium 9.9 mg/dL (8.5-10.5); Carbon Dioxide 25 mmol/L (22-29); Chloride 103 mmol/L (98-107); Globulin 3.4 g/dL (1.3-4.6); Glucose 137 mg/dL (65-115); Osmolality Calculated 288 mOsm/kg (285-295); Potassium 4.6 mmol/L (3.5-5.1); Sodium 138 mmol/L (136-145); Total Bilirubin 0.3 mg/dL (0.15-1.2); Total Protein 7.6 g/dL (6.6-8.7)
[2023-05-01] MEDS: sodium chlor 0.9% + KCl 20 mEq 20 MEQ/1,000 ML BAG 500 MEQ (09:03)
[2023-05-01] MEDS: magnesium sulfate premix 2 GM/50 ML PIGGYBACK 30 GM (09:05)
[2023-05-01 09:10] VITALS: BMI 30.4
[2023-05-01 09:12] VITALS: BP 110/78; PULSE 90; RESP 17; TEMP 36.6; O2SAT 96
[2023-05-01 09:29] LABS: Basophils # 0.2 10^3/uL (0.0-0.1); Basophils % 0.5 %; Eosinophils # 0.2 10^3/uL (0.0-0.8); Eosinophils % 0.4 %; Lymphocytes # 3.7 10^3/uL (0.8-4.8); Lymphocytes % 8.4 %; Mean Corpuscular HGB Conc 32.7 g/dL (30-55); Mean Corpuscular Hemoglobin 29.5 pg (27-33); Mean Corpuscular Volume 90.1 fl (82-101); Mean Platelet Volume 10.2 fL (7.4-10.4); Monocytes # 0.9 10^3/uL (0.2-0.9); Monocytes % 2.1 %; Neutrophils # 38.47 10^3/uL (1.8-7.7); Neutrophils % 86.7 %; Nucleated Red Blood Cells % 0 %; Platelet Count 255 10^3/cmm (157-399); Red Blood Count 4.55 10^6/uL (3.85-5.65); Red Cell Distribution Width 13.7 % (12.1-15.1)
[2023-05-01 09:33] LABS: White Blood Count 44.39 10^3/uL (3.29-11.43)
[2023-05-01 09:51] LABS: Alanine Aminotransferase 31 U/L (0-41); Albumin Level 4.2 g/dL (3.5-5.2); Alkaline Phosphatase 146 U/L (40-130); Anion Gap 16.2 (5-19); Aspartate Amino Transferase 17 U/L (0-40); Blood Urea Nitrogen 14 mg/dL (6-20); Calcium 9.4 mg/dL (8.5-10.5); Carbon Dioxide 24 mmol/L (22-29); Chloride 104 mmol/L (98-107); Glucose 102 mg/dL (65-115); Osmolality Calculated 291 mOsm/kg (285-295); Potassium 4.2 mmol/L (3.5-5.1); Sodium 140 mmol/L (136-145); Total Bilirubin 0.3 mg/dL (0.15-1.2); Total Protein 7.2 g/dL (6.6-8.7)
--- NOTE | 2023-05-01 10:44 | ONCRAD TMN_ITS ---
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 ID: [id number], Energy: 6X, Dose/Fx (cGy): 200, #Fx: , Dose Correction (cGy): 0, Total Dose (cGy): 200, Start Date: 05/01/2023, Elapsed Days: 0 Reason for visit: The patient is being seen today as part of their regularly scheduled weekly on treatment visits to assess for acute toxicities from radiotherapy. Review of Systems: Patient is starting his radiation therapy today. He will be undergoing chemotherapy under the care of of Dr. Gupta and medical oncology. Vital Signs: Performed on 05/01/2023 8:40 AM BMI - 30.188 kg/m2 (high), Height - 76 in, Weight - 248 lbs, Temperature - 97.9 f, Pulse - 88 /min, Respiration - 16 /min, O2 Sat - 96 %, Pain - 0, Fatigue - 0 and BP - 174/ 85 mm(hg)(high/). Physical Exam: Alert and oriented male appearing his stated age. Patient ambulatory without assistance. Imaging: Radiation therapy imaging related to accurate target localization (i.e. KV, MV and CBCT) was reviewed. Appropriate changes, if any, were made to ensure treatment accuracy. Plan: Continue prescribed radiation therapy. Potential side effects of combined chemotherapy and radiation were reviewed with the patient and his . Signed by: Bakari Jorge 05/01/2023 10:43:25 AM
[2023-05-01] MEDS: sodium chloride 0.9% 250 ML 75 ML IV (11:30)
[2023-05-01] MEDS: OLANZapine 5 mg TABLET PO (11:31)
[2023-05-01] MEDS: diphenhydrAMINE 50 mg/mL SDV 1mL 25 MG IVP (11:34)
[2023-05-01] MEDS: famotidine 20 mg/2 mL INJ IVP (11:37)
[2023-05-01] MEDS: palonosetron 0.25 mg/5 mL SDV (11:40)
[2023-05-01] MEDS: fosaprepitant 150 MG in sodium chloride 0.9% 150 ML 300 MG IV (11:50)
[2023-05-01] MEDS: FUROsemide 10 mg/mL SDV 2mL 20 MG IVP (14:10)
[2023-05-01] MEDS: potassium chloride 20 MEQ in sodium chloride 0.9% 500 ML 275 MEQ IV (14:12)
[2023-05-01 16:44] VITALS: BP 122/74; PULSE 91; TEMP 36.4; O2SAT 93
== END 2023-05-03 23:59 | disposition home or self-care (01) ==
PROVIDERS: Internal Medicine Medical Oncology; Nurse Practitioner Family; PCP Family Medicine; Visit Provider Radiology Radiation Oncology
DX: C09.9 Malignant neoplasm of tonsil, unspecified (principal); Z51.0 Encounter for antineoplastic radiation therapy; C01 Malignant neoplasm of base of tongue
CPT/HCPCS: 36415; 77014; 77386; 80053; 85025; 96366; 96367; 96368; 96372; 96375; 96401; 96413; J1100; J1200; J1453; J1940; J2469; J3475; J3480; J3490; J7040; J7050; J9060; Q5101

== ENCOUNTER 2023-05-17 09:00 | Oncology outpatient (recurring) (ONCR) | payer OTHER, SELFPAY ==
[2023-05-08 08:41] LABS: Basophils # 0.1 10^3/uL (0.0-0.1); Eosinophils # 0.2 10^3/uL (0.0-0.8); Eosinophils % 4.9 %; Hematocrit 40.6 % (37-53); Lymphocytes # 2.1 10^3/uL (0.8-4.8); Lymphocytes % 47.4 %; Mean Corpuscular HGB Conc 32.5 g/dL (30-55); Mean Corpuscular Hemoglobin 29.5 pg (27-33); Mean Corpuscular Volume 90.6 fl (82-101); Mean Platelet Volume 9.2 fL (7.4-10.4); Monocytes # 0.7 10^3/uL (0.2-0.9); Neutrophils # 1.36 10^3/uL (1.8-7.7); Neutrophils % 30.5 %; Nucleated Red Blood Cells % 0 %; Platelet Count 385 10^3/cmm (157-399); Red Blood Count 4.48 10^6/uL (3.85-5.65); Red Cell Distribution Width 13.3 % (12.1-15.1); White Blood Count 4.47 10^3/uL (3.29-11.43)
[2023-05-08 08:59] LABS: Alanine Aminotransferase 27 U/L (0-41); Albumin Level 4.1 g/dL (3.5-5.2); Alkaline Phosphatase 113 U/L (40-130); Aspartate Amino Transferase 14 U/L (0-40); Blood Urea Nitrogen 14 mg/dL (6-20); Calcium 9.4 mg/dL (8.5-10.5); Carbon Dioxide 24 mmol/L (22-29); Chloride 102 mmol/L (98-107); Globulin 3.1 g/dL (1.3-4.6); Glomerular Filtration Rate 99.6 mL/min (90-130); Glucose 106 mg/dL (65-115); Osmolality Calculated 285 mOsm/kg (285-295); Sodium 137 mmol/L (136-145); Total Bilirubin 0.3 mg/dL (0.15-1.2); Total Protein 7.2 g/dL (6.6-8.7)
--- NOTE | 2023-05-08 09:11 | ONCRAD TMN_ITS ---
Radiation Oncology Weekly Treatment Management Patient: Violette Isabel MR#: [id number] : 1965 Attending Physician: Dr. Shelby Vieira Date of Service: 05/08/2023 Referring Physician(s) : Fractions: 5 out of 30 Diagnosis: Squamous of carcinoma of the right tonsil status post surgery Radiotherapy to date: Course: Head Neck 2022, Treatment Site: HN 60Gy, Ref. ID: [id number], Energy: 6X, Dose/Fx (cGy): 200, #Fx: 5 / 30, Dose Correction (cGy): 0, Total Dose (cGy): 1,000, Start Date: 05/01/2023, Elapsed Days: 7 Reason for visit: The patient is being seen today as part of their regularly scheduled weekly on treatment visits to assess for acute toxicities from radiotherapy. Review of Systems: Patient has developed erythematous mildly raised rash across the right neck and chest. Vital Signs: Performed on 05/08/2023 8:37 AM BMI - 30.37 kg/m2 (high), Height - 76 in, Weight - 249.5 lbs, Temperature - 98.5 f, Pulse - 80 /min, Respiration - 16 /min, O2 Sat - 97 %, Pain - 0, Fatigue - 0 and BP - 118/ 91 mm(hg)(/high). Physical Exam: The skin across the right supraclavicular area and down across the chest on the right side is erythematous with a mild raised rash. Imaging: Radiation therapy imaging related to accurate target localization (i.e. KV, MV and CBCT) was reviewed. Appropriate changes, if any, were made to ensure treatment accuracy. Plan: At this point we will continue with his treatments as planned. He will let medical oncology know about his skin reaction which began on Sunday after his chemotherapy on Sunday. He has had no changes as yet from the radiation. He will start using cortisone on the treated skin but not before his treatment daily. Signed by: Dr. Shelby Vieira 05/08/2023 9:10:43 AM
[2023-05-08 09:48] LABS: Anion Gap 15.4 (5-19); Potassium 4.4 mmol/L (3.5-5.1)
[2023-05-08] MEDS: OLANZapine 5 mg TABLET PO (12:36)
[2023-05-08] MEDS: sodium chloride 0.9% 500 ML 75 ML IV (12:36)
[2023-05-08] MEDS: diphenhydrAMINE 50 mg/mL SDV 1mL 25 MG IVP (12:37)
[2023-05-08] MEDS: palonosetron 0.25 mg/5 mL SDV IVP (12:41)
[2023-05-08] MEDS: famotidine 20 mg/2 mL INJ IVP (12:44)
[2023-05-08] MEDS: fosaprepitant 150 MG in sodium chloride 0.9% 150 ML 300 MG IV (12:48)
[2023-05-08] MEDS: FUROsemide 10 mg/mL SDV 2mL 20 MG IVP (15:28)
[2023-05-08] MEDS: potassium chloride 20 MEQ in sodium chloride 0.9% 500 ML 500 MEQ IV (15:35)
[2023-05-08 16:35] VITALS: BP 122/78; PULSE 74; RESP 18; TEMP 36.6; O2SAT 98
[2023-05-09 09:10] VITALS: BP 120/69; PULSE 74; RESP 18; TEMP 36.6; O2SAT 98
[2023-05-09] MEDS: filgrastim-sndz 480 mcg/0.8 mL Syringe SUBCUT (09:23)
[2023-05-09 09:31] VITALS: BP 139/74; PULSE 74; RESP 18; TEMP 36.6; O2SAT 98
[2023-05-10 08:49] VITALS: BP 124/68; PULSE 87; RESP 16; TEMP 36.5; O2SAT 98
[2023-05-10] MEDS: filgrastim-sndz 480 mcg/0.8 mL Syringe SUBCUT (08:49)
[2023-05-16 08:22] VITALS: BP 125/88; PULSE 68; RESP 16; TEMP 36.5; O2SAT 97
[2023-05-16 08:36] LABS: Basophils # 0.1 10^3/uL (0.0-0.1); Basophils % 1.6 %; Eosinophils # 0.2 10^3/uL (0.0-0.8); Eosinophils % 5.1 %; Hematocrit 39.5 % (37-53); Lymphocytes # 1.4 10^3/uL (0.8-4.8); Lymphocytes % 44.9 %; Mean Corpuscular HGB Conc 32.4 g/dL (30-55); Mean Corpuscular Hemoglobin 29.4 pg (27-33); Mean Corpuscular Volume 90.6 fl (82-101); Mean Platelet Volume 9.3 fL (7.4-10.4); Monocytes # 0.7 10^3/uL (0.2-0.9); Monocytes % 22.8 %; Neutrophils % 25.3 %; Nucleated Red Blood Cells % 0 %; Platelet Count 288 10^3/cmm (157-399); Red Blood Count 4.36 10^6/uL (3.85-5.65); Red Cell Distribution Width 13.5 % (12.1-15.1); White Blood Count 3.12 10^3/uL (3.29-11.43)
[2023-05-16 08:59] LABS: Alanine Aminotransferase 19 U/L (0-41); Alkaline Phosphatase 115 U/L (40-130); Blood Urea Nitrogen 18 mg/dL (6-20); Calcium 9.2 mg/dL (8.5-10.5); Carbon Dioxide 23 mmol/L (22-29); Chloride 102 mmol/L (98-107); Globulin 3.1 g/dL (1.3-4.6); Glomerular Filtration Rate 99.6 mL/min (90-130); Glucose 124 mg/dL (65-115); Osmolality Calculated 285 mOsm/kg (285-295); Sodium 136 mmol/L (136-145); Total Bilirubin 0.2 mg/dL (0.15-1.2); Total Protein 7.1 g/dL (6.6-8.7)
[2023-05-16 09:02] LABS: Anion Gap 15.5 (5-19); Aspartate Amino Transferase 16 U/L (0-40); Potassium 4.5 mmol/L (3.5-5.1)
[2023-05-16 09:28] LABS: Neutrophils # 0.79 10^3/uL (1.8-7.7)
[2023-05-16] MEDS: filgrastim-sndz 480 mcg/0.8 mL Syringe SUBCUT (11:17)
--- NOTE | 2023-05-16 11:44 | PC.NURSE ---
Occult blood stool sample ordered per Kina Lee APRN. Patient educated on collecting sample at home and provided with educational handout. Patient educated to bring sample tomorrow, 05/17/23, when here for filgrastim injection. Patient verbalized understanding.
[2023-05-17] MEDS: filgrastim-sndz 480 mcg/0.8 mL Syringe SUBCUT (08:41)
== END 2023-05-17 23:59 | disposition home or self-care (01) ==
PROVIDERS: Internal Medicine Hematology & Oncology; Internal Medicine Medical Oncology; PCP Family Medicine; Visit Provider Radiology Radiation Oncology
DX: C09.9 Malignant neoplasm of tonsil, unspecified (principal); Z51.0 Encounter for antineoplastic radiation therapy; Z53.9 Procedure and treatment not carried out, unspecified reason; Z79.899 Other long term (current) drug therapy
CPT/HCPCS: 36591; 77014; 77336; 77386; 80053; 82274; 85025; 96365; 96366; 96367; 96372; 96375; 96401; 96413; 99024; 99214; J1100; J1200; J1453; J1642; J1940; J2469; J3475; J3480; J3490; J7030; J7040; J9060; Q5101

== ENCOUNTER 2023-05-30 09:00 | Oncology outpatient (recurring) (ONCR) | payer OTHER, SELFPAY ==
[2023-05-18] MEDS: filgrastim-sndz 480 mcg/0.8 mL Syringe SUBCUT (08:13)
[2023-05-21 09:12] LABS: Basophils # 0.1 10^3/uL (0.0-0.1); Basophils % 0.8 %; Eosinophils # 0.2 10^3/uL (0.0-0.8); Eosinophils % 3.1 %; Hematocrit 43.2 % (37-53); Lymphocytes # 1.9 10^3/uL (0.8-4.8); Lymphocytes % 29.5 %; Mean Corpuscular HGB Conc 32.4 g/dL (30-55); Mean Corpuscular Hemoglobin 29.2 pg (27-33); Mean Corpuscular Volume 90.2 fl (82-101); Mean Platelet Volume 9.1 fL (7.4-10.4); Monocytes # 0.6 10^3/uL (0.2-0.9); Monocytes % 9.9 %; Neutrophils # 3.52 10^3/uL (1.8-7.7); Neutrophils % 55.3 %; Nucleated Red Blood Cells % 0 %; Platelet Count 252 10^3/cmm (157-399); Red Blood Count 4.79 10^6/uL (3.85-5.65); Red Cell Distribution Width 13.8 % (12.1-15.1); White Blood Count 6.37 10^3/uL (3.29-11.43)
[2023-05-21 09:16] VITALS: BP 120/89; PULSE 69; RESP 17; TEMP 36.4; O2SAT 95
[2023-05-21] MEDS: sodium chloride 0.9% 250 ML 75 ML IV (11:33)
[2023-05-21] MEDS: OLANZapine 5 mg TABLET PO (11:33)
[2023-05-21] MEDS: diphenhydrAMINE 50 mg/mL SDV 1mL 25 MG IVP (11:34)
[2023-05-21] MEDS: palonosetron 0.25 mg/5 mL SDV IVP (11:39)
[2023-05-21] MEDS: famotidine 20 mg/2 mL INJ IVP (11:43)
[2023-05-21] MEDS: fosaprepitant 150 MG in sodium chloride 0.9% 150 ML 300 MG IV (11:47)
[2023-05-21] MEDS: FUROsemide 10 mg/mL SDV 2mL 20 MG IVP (14:22)
[2023-05-21] MEDS: potassium chloride 20 MEQ in sodium chloride 0.9% 500 ML 500 MEQ IV (14:34)
[2023-05-21 15:55] VITALS: BP 117/80; PULSE 79; RESP 17; O2SAT 94
--- NOTE | 2023-05-22 09:33 | ONCRAD TMN_ITS ---
Radiation Oncology Weekly Treatment Management Patient: Chalo Oakes MR#: [id number] : 1965 Attending Physician: Ernst Queen Date of Service: 05/22/2023 Referring Physician(s) : Diagnosis: Radiotherapy to date: Course: Head Neck 2022, Treatment Site: HN 60Gy, Ref. ID: [id number], Energy: 6X, Dose/Fx (cGy): 200, #Fx: 15 / 30, Dose Correction (cGy): 0, Total Dose (cGy): 3,000, Start Date: 05/01/2023, Elapsed Days: 21 Reason for visit: The patient is being seen today as part of their regularly scheduled weekly on treatment visits to assess for acute toxicities from radiotherapy. Review of Systems: He had chemo yesterday and now has fatigue 8 on 10 scale. He did take a nap yesterday. Minimal throat pain 1 on 10 scale. No interest yet in magic mouthwash. Vital Signs: Performed on 05/22/2023 8:41 AM BMI - 30.407 kg/m2 (high), Height - 76 in, Weight - 249.8 lbs, Temperature - 97.8 f, Pulse - 69 /min, Respiration - 16 /min, O2 Sat - 97 %, Pain - 1, Fatigue - 8 and BP - 131/ 90 mm(hg). Physical Exam: Bilateral moderate neck erythema. Imaging: Radiation therapy imaging related to accurate target localization (i.e. KV, MV and CBCT) was reviewed. Appropriate changes, if any, were made to ensure treatment accuracy. Plan: Good tolerance of treatment. Dd salt and baking soda gargles. Add topical moisturizer. He has Aquaphor at home already. Signed by: Ernst Queen 05/22/2023 9:31:19 AM
[2023-05-23] MEDS: filgrastim-sndz 480 mcg/0.8 mL Syringe SUBCUT (08:59)
[2023-05-24] MEDS: filgrastim-sndz 480 mcg/0.8 mL Syringe SUBCUT (08:13)
[2023-05-25] MEDS: filgrastim-sndz 480 mcg/0.8 mL Syringe SUBCUT (08:39)
[2023-05-29 09:00] VITALS: BMI 29.5
--- NOTE | 2023-05-29 09:10 | ONCRAD TMN_ITS ---
Radiation Oncology Weekly Treatment Management Patient: Chalo Oakes MR#: [id number] : 1965 Attending Physician: Niko Love Date of Service: 05/29/2023 Referring Physician(s) : Dr. Cale Simmons Diagnosis: C09.9 - Malignant neoplasm of tonsil, unspecified, Diagnosed 01/03/2023 (Active) Radiotherapy to date: Course: Head Neck 2022, Treatment Site: HN 60Gy, Ref. ID: [id number], Energy: 6X, Dose/Fx (cGy): 200, #Fx: , Dose Correction (cGy): 0, Total Dose (cGy): 3,800, Start Date: 05/01/2023, Elapsed Days: 28 Reason for visit: The patient is being seen today as part of their regularly scheduled weekly on treatment visits to assess for acute toxicities from radiotherapy. Review of Systems: He is experiencing nausea, acid reflux, and heartburn. Also complains of very hard stools. He is taking a stool softener, 1/day. He has prochlorperazine 10 mg and ondansetron 8 mg for the nausea. They have been less effective lately. It seems their lack of effectiveness has been associated with the increase in heartburn. He is taking Rolaids which tend to relieve the heartburn but it recurs fairly rapidly. At this time he has no pain in the oral cavity or oropharynx. He does have dry mouth and altered taste. He is scheduled for blood work and chemotherapy today. Vital Signs: Performed on 05/29/2023 8:18 AM BMI - 29.603 kg/m2 (high), Height - 76 in, Weight - 243.2 lbs, Temperature - 97.2 f, Pulse - 88 /min, Respiration - 16 /min, O2 Sat - 98 %, Pain - 0, Fatigue - 0 and BP - 146/ 85 mm(hg)(high/). Physical Exam: No appreciable skin reaction. No lymphadenopathy in the neck. Oral cavity exam reveals his dentition to be in good repair. Mild trismus. Mucous membranes are dry. The right tonsillar fossa appears well-healed. No lesions seen. No evidence of mucositis. Lungs clear to auscultation. Heart rhythm regular. Imaging: Radiation therapy imaging related to accurate target localization (i.e. KV, MV and CBCT) was reviewed. Appropriate changes, if any, were made to ensure treatment accuracy. Plan: Continue radiation per plan. We discussed acid reducers. Named several and told him to try one. 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 He will continue the Rolaids on an as needed basis. Continue Compazine and ondansetron. Discussed that he has good dentition but that he needs to have a consistent daily program of dental hygiene himself and then see the dentist on a regular basis. He is doing fluoride tray applications. He has mild trismus at this time. I discussed stretching exercises with him and told him if he does not do them it could progress to a severe problem. In terms of the hard stools, I told him to increase his stool softener to 3 or 4/day. Signed by: Niko Love 05/29/2023 9:08:48 AM
[2023-05-29 09:22] LABS: Basophils % 0.8 %; Eosinophils # 0.1 10^3/uL (0.0-0.8); Lymphocytes # 1.5 10^3/uL (0.8-4.8); Mean Corpuscular Hemoglobin 29.5 pg (27-33); Mean Corpuscular Volume 89.2 fl (82-101); Mean Platelet Volume 9.5 fL (7.4-10.4); Monocytes # 0.5 10^3/uL (0.2-0.9); Monocytes % 10.2 %; Neutrophils # 2.84 10^3/uL (1.8-7.7); Neutrophils % 56.8 %; Nucleated Red Blood Cells % 0 %; Platelet Count 208 10^3/cmm (157-399); Red Blood Count 4.82 10^6/uL (3.85-5.65); Red Cell Distribution Width 13.7 % (12.1-15.1)
[2023-05-29 09:48] LABS: Alanine Aminotransferase 25 U/L (0-41); Albumin Level 4.3 g/dL (3.5-5.2); Alkaline Phosphatase 167 U/L (40-130); Blood Urea Nitrogen 17 mg/dL (6-20); Calcium 9.3 mg/dL (8.5-10.5); Carbon Dioxide 25 mmol/L (22-29); Chloride 101 mmol/L (98-107); Glucose 125 mg/dL (65-115); Osmolality Calculated 285 mOsm/kg (285-295); Sodium 136 mmol/L (136-145); Total Bilirubin 0.2 mg/dL (0.15-1.2); Total Protein 7.3 g/dL (6.6-8.7)
[2023-05-29 09:54] LABS: Anion Gap 14.3 (5-19); Aspartate Amino Transferase 17 U/L (0-40); Potassium 4.3 mmol/L (3.5-5.1)
[2023-05-29] MEDS: sodium chloride 0.9% 250 ML 75 ML IV (12:12)
[2023-05-29] MEDS: fosaprepitant 150 MG in sodium chloride 0.9% 150 ML 300 MG IV (12:14)
[2023-05-29] MEDS: OLANZapine 5 mg TABLET PO (12:15)
[2023-05-29] MEDS: palonosetron 0.25 mg/5 mL SDV IVP (12:16)
[2023-05-29] MEDS: famotidine 20 mg/2 mL INJ IVP (12:18)
[2023-05-29] MEDS: diphenhydrAMINE 50 mg/mL SDV 1mL 25 MG IVP (12:18)
[2023-05-29] MEDS: potassium chloride 20 MEQ in sodium chloride 0.9% 500 ML 500 MEQ IV (14:35)
[2023-05-29] MEDS: FUROsemide 10 mg/mL SDV 2mL 20 MG IVP (14:35)
[2023-05-29 15:36] VITALS: BP 113/78; PULSE 79; RESP 17; TEMP 36.2; O2SAT 97
[2023-05-30 09:09] VITALS: BP 120/81; PULSE 95; RESP 16; TEMP 36.6; O2SAT 98
[2023-05-30] MEDS: filgrastim-sndz 480 mcg/0.8 mL Syringe SUBCUT (09:12)
== END 2023-05-30 23:59 | disposition home or self-care (01) ==
PROVIDERS: Internal Medicine Medical Oncology; Nurse Practitioner Family; PCP Family Medicine; Visit Provider Radiology Radiation Oncology
DX: Z53.9 Procedure and treatment not carried out, unspecified reason (principal); C09.9 Malignant neoplasm of tonsil, unspecified; Z79.899 Other long term (current) drug therapy; Z51.0 Encounter for antineoplastic radiation therapy
CPT/HCPCS: 77014; 77336; 77386; 80053; 85025; 96365; 96366; 96367; 96372; 96374; 96375; 96401; 96413; 99024; 99214; J1100; J1200; J1453; J1642; J1940; J2469; J3475; J3480; J3490; J7030; J7040; J7050; J9060; Q5101

== ENCOUNTER 2023-06-01 09:30 | Oncology outpatient (recurring) (ONCR) | payer OTHER, SELFPAY ==
[2023-05-31] MEDS: filgrastim-sndz 480 mcg/0.8 mL Syringe SUBCUT (08:14)
[2023-05-31 08:22] VITALS: BP 117/78; PULSE 78; RESP 16; TEMP 36.2; O2SAT 98
[2023-06-01] MEDS: filgrastim-sndz 480 mcg/0.8 mL Syringe SUBCUT (08:48)
== END 2023-06-03 23:59 | disposition home or self-care (01) ==
PROVIDERS: PCP Family Medicine; Visit Provider Specialist
DX: C09.9 Malignant neoplasm of tonsil, unspecified (principal); Z53.9 Procedure and treatment not carried out, unspecified reason; Z51.0 Encounter for antineoplastic radiation therapy; Z95.828 Presence of other vascular implants and grafts; Z79.899 Other long term (current) drug therapy
CPT/HCPCS: 77014; 77336; 77386; 96372; Q5101

== ENCOUNTER 2023-06-14 08:00 | Oncology outpatient (recurring) (ONCR) | payer OTHER, SELFPAY ==
[2023-06-05 08:47] VITALS: BP 121/86; PULSE 78; RESP 17; TEMP 36.2; O2SAT 96
[2023-06-05 08:48] LABS: Basophils % 1.1 %; Eosinophils # 0.1 10^3/uL (0.0-0.8); Eosinophils % 1.9 %; Hematocrit 43.3 % (37-53); Lymphocytes # 1.2 10^3/uL (0.8-4.8); Lymphocytes % 33.1 %; Mean Corpuscular HGB Conc 32.8 g/dL (30-55); Mean Corpuscular Hemoglobin 29.6 pg (27-33); Mean Corpuscular Volume 90.4 fl (82-101); Mean Platelet Volume 9.3 fL (7.4-10.4); Monocytes # 0.5 10^3/uL (0.2-0.9); Monocytes % 13.3 %; Nucleated Red Blood Cells % 0 %; Platelet Count 255 10^3/cmm (157-399); Red Blood Count 4.79 10^6/uL (3.85-5.65); Red Cell Distribution Width 13.7 % (12.1-15.1)
[2023-06-05 09:05] LABS: Alanine Aminotransferase 24 U/L (0-41); Albumin Level 4.2 g/dL (3.5-5.2); Alkaline Phosphatase 162 U/L (40-130); Blood Urea Nitrogen 19 mg/dL (6-20); Calcium 9.6 mg/dL (8.5-10.5); Carbon Dioxide 24 mmol/L (22-29); Chloride 104 mmol/L (98-107); Globulin 3.5 g/dL (1.3-4.6); Glucose 125 mg/dL (65-115); Osmolality Calculated 288 mOsm/kg (285-295); Sodium 137 mmol/L (136-145); Total Bilirubin 0.2 mg/dL (0.15-1.2); Total Protein 7.7 g/dL (6.6-8.7)
[2023-06-05 09:12] LABS: Anion Gap 13.8 (5-19); Aspartate Amino Transferase 16 U/L (0-40); Potassium 4.8 mmol/L (3.5-5.1)
[2023-06-05] MEDS: famotidine 20 mg/2 mL INJ IVP (11:48)
[2023-06-05] MEDS: sodium chloride 0.9% 250 ML 75 ML IV (11:48)
[2023-06-05] MEDS: diphenhydrAMINE 50 mg/mL SDV 1mL 25 MG IVP (11:52)
[2023-06-05] MEDS: OLANZapine 5 mg TABLET PO (11:55)
[2023-06-05] MEDS: palonosetron 0.25 mg/5 mL SDV IVP (11:55)
[2023-06-05] MEDS: fosaprepitant 150 MG in sodium chloride 0.9% 150 ML 300 MG IV (11:58)
--- NOTE | 2023-06-05 12:45 | ONCRAD TMN_ITS ---
Radiation Oncology Weekly Treatment Management Patient: Violette Posey MR#: [id number] : 1965> Attending Physician: Ernst Queen Date of Service: 06/05/2023 Referring Physician(s) : Diagnosis: C09.9 - Malignant neoplasm of tonsil, unspecified, Diagnosed 01/03/2023 (Active) Radiotherapy to date: Course: Head Neck 2022, Treatment Site: HN 60Gy, Ref. ID: [id number], Energy: 6X, Dose/Fx (cGy): 200, #Fx: , Dose Correction (cGy): 0, Total Dose (cGy): 4,400, Start Date: 05/01/2023, Elapsed Days: Reason for visit: The patient is being seen today as part of their regularly scheduled weekly on treatment visits to assess for acute toxicities from radiotherapy. Review of Systems: Doing well. Modest oral cavity pain. Some mouth sores noted for first time. He has magic mouthwash. Chemo planned for today. Vital Signs: Performed on 06/05/2023 8:28 AM Height - 76 in, Weight - 243.5 lbs, BMI - 29.64 kg/m2 (high), Temperature - 97.8 f, Pulse - 78 /min, Respiration - 17 /min, O2 Sat - 96 %, Pain - 1, Fatigue - 0 and BP - 121/ 86 mm(hg). Physical Exam: Imaging: Radiation therapy imaging related to accurate target localization (i.e. KV, MV and CBCT) was reviewed. Appropriate changes, if any, were made to ensure treatment accuracy. Plan: Good tolerance of treatment. Continue as planned. Signed by: Ernst Queen 06/05/2023 1:16:29 PM Telemedicine Consent Patient seen today via Telemedicine by agreement and consent of patient. Telemedicine technology used during the visit include audio and, as available, review of images. This patient encounter is appropriate and reasonable under the circumstances given the patient???s particular presentation at this time. The patient has been advised of the potential risks and limitations of this mode of treatment (including but not limited to the absence of in-person examination) and has agreed to be treated in a remote fashion in spite of them. Any and all of the patient???s/patient???s family???s questions on this issue have been answered and I have made no promises or guarantees to the patient. The patient has also been advised to contact this office for worsening conditions or problems, and seek emergency medical treatment and/or call 911 if the patient deems either necessary.
[2023-06-05] MEDS: FUROsemide 10 mg/mL SDV 2mL 20 MG IVP (14:13)
[2023-06-05] MEDS: potassium chloride 20 MEQ in sodium chloride 0.9% 500 ML 500 MEQ IV (14:17)
[2023-06-05 15:21] VITALS: BP 110/77; PULSE 87; TEMP 36.2
[2023-06-06] MEDS: filgrastim-sndz 480 mcg/0.8 mL Syringe SUBCUT (08:22)
[2023-06-07] MEDS: filgrastim-sndz 480 mcg/0.8 mL Syringe SUBCUT (08:50)
[2023-06-08] MEDS: filgrastim-sndz 480 mcg/0.8 mL Syringe SUBCUT (08:13)
[2023-06-11 09:22] LABS: Basophils % 0.9 %; Eosinophils # 0.1 10^3/uL (0.0-0.8); Eosinophils % 1.5 %; Hematocrit 41.8 % (37-53); Lymphocytes # 1.4 10^3/uL (0.8-4.8); Lymphocytes % 29.7 %; Mean Corpuscular HGB Conc 32.8 g/dL (30-55); Mean Corpuscular Hemoglobin 29.5 pg (27-33); Mean Corpuscular Volume 90.1 fl (82-101); Mean Platelet Volume 9.1 fL (7.4-10.4); Monocytes # 0.4 10^3/uL (0.2-0.9); Monocytes % 9.7 %; Neutrophils # 2.61 10^3/uL (1.8-7.7); Neutrophils % 57.5 %; Nucleated Red Blood Cells % 0 %; Platelet Count 268 10^3/cmm (157-399); Red Blood Count 4.64 10^6/uL (3.85-5.65); Red Cell Distribution Width 13.9 % (12.1-15.1); White Blood Count 4.54 10^3/uL (3.29-11.43)
[2023-06-11 09:57] LABS: Alanine Aminotransferase 28 U/L (0-41); Albumin Level 4.1 g/dL (3.5-5.2); Alkaline Phosphatase 171 U/L (40-130); Anion Gap 16.1 (5-19); Aspartate Amino Transferase 19 U/L (0-40); Blood Urea Nitrogen 16 mg/dL (6-20); Calcium 9.2 mg/dL (8.5-10.5); Carbon Dioxide 23 mmol/L (22-29); Chloride 104 mmol/L (98-107); Globulin 3.4 g/dL (1.3-4.6); Glucose 107 mg/dL (65-115); Osmolality Calculated 288 mOsm/kg (285-295); Potassium 5.1 mmol/L (3.5-5.1); Sodium 138 mmol/L (136-145); Total Bilirubin 0.3 mg/dL (0.15-1.2); Total Protein 7.5 g/dL (6.6-8.7)
[2023-06-12 08:34] VITALS: BMI 29.0
[2023-06-12 08:36] VITALS: BP 111/82; PULSE 80; RESP 16; TEMP 36.1; O2SAT 93
--- NOTE | 2023-06-12 09:17 | ONCRAD TMN_ITS ---
Radiation Oncology Weekly Treatment Management Patient: Chalo Oakes MR#: [id number] : 1965 Attending Physician: Dr. Shelby Vieira Date of Service: 06/12/2023 Fractions: 28 out of 30 Referring Physician(s) : Diagnosis: C09.9 - Malignant neoplasm of tonsil, unspecified, Diagnosed 01/03/2023 (Active) Radiotherapy to date: Course: Head Neck 2022, Treatment Site: HN 60Gy, Ref. ID: [id number], Energy: 6X, Dose/Fx (cGy): 200, #Fx: , Dose Correction (cGy): 0, Total Dose (cGy): 5,600, Start Date: 05/01/2023, Elapsed Days: 42 Reason for visit: The patient is being seen today as part of their regularly scheduled weekly on treatment visits to assess for acute toxicities from radiotherapy. Review of Systems: Patient is in good spirits. He had no complaints today. He was getting chemotherapy today Vital Signs: Performed on 06/12/2023 8:33 AM BMI - 29.092 kg/m2 (high), Height - 76 in, Weight - 239 lbs, Temperature - 97 f, Pulse - 80 /min, Respiration - 16 /min, O2 Sat - 93 % (low), Pain - 0, Fatigue - 0 and BP - 111/ 82 mm(hg). Physical Exam: On exam his skin is erythematous and hyperpigmented. The areas of hyperpigmented have peeled slightly. Imaging: Radiation therapy imaging related to accurate target localization (i.e. KV, MV and CBCT) was reviewed. Appropriate changes, if any, were made to ensure treatment accuracy. Plan: Will continue with his treatments as planned he will be finished with his treatments in 2 days. Signed by: Dr. Shelby Vieira 06/12/2023 9:16:43 AM
[2023-06-12] MEDS: OLANZapine 5 mg TABLET PO (10:20)
[2023-06-12] MEDS: sodium chloride 0.9% 250 ML 75 ML IV (10:20)
[2023-06-12] MEDS: palonosetron 0.25 mg/5 mL SDV IVP (10:21)
[2023-06-12] MEDS: diphenhydrAMINE 50 mg/mL SDV 1mL 25 MG IVP (10:26)
[2023-06-12] MEDS: famotidine 20 mg/2 mL INJ IVP (10:26)
[2023-06-12] MEDS: fosaprepitant 150 MG in sodium chloride 0.9% 150 ML 300 MG IV (10:54)
[2023-06-12] MEDS: potassium chloride 20 MEQ in sodium chloride 0.9% 500 ML 500 MEQ IV (12:53)
[2023-06-12] MEDS: FUROsemide 10 mg/mL SDV 2mL 20 MG IVP (12:53)
[2023-06-12 13:59] VITALS: BP 113/81; PULSE 89; RESP 16; TEMP 36.4; O2SAT 93
[2023-06-13] MEDS: filgrastim-sndz 480 mcg/0.8 mL Syringe SUBCUT (08:18)
[2023-06-14 08:10] VITALS: BP 104/74; PULSE 89; RESP 17; TEMP 36.2; O2SAT 97
[2023-06-14] MEDS: sodium chloride 0.9% 1,000 ML 999 ML IV (08:27)
[2023-06-14] MEDS: filgrastim-sndz 480 mcg/0.8 mL Syringe SUBCUT (08:54)
--- NOTE | 2023-06-14 09:44 | N.ONRD TS_ITS ---
Radiation Oncology Treatment Summary Patient: Chalo Oakes MR#: [id number] : 1965 Age: 57 Sex: Male Dictated by: Dr. Shelby Vieira Date of Service: 06/14/2023 Referring Physician(s) : Dr. Henry Gupta Diagnosis: C09.9 - Malignant neoplasm of tonsil, unspecified, Diagnosed 01/03/2023 (Active) Radiotherapy to Date: Course: Head Neck 2022, Treatment Site: HN 60Gy, Ref. ID: [id number], Energy: 6X, Dose/Fx (cGy): 200, #Fx: 30 / 30, Dose Correction (cGy): 0, Total Dose (cGy): 6,000, Start Date: 05/01/2023, End Date: 06/14/2023, Elapsed Days: 44 Clinical Summary: The patient tolerated RT well. He did experience some hyperpigmentation and erythema of the skin. He was able to maintain his weight. Plan: End of treatment today. Continue on the above medication until the skin reaction resolves. Follow up in one month. Signed by: Dr. Shelby Vieira>06/14/2023 9:43:28 AM <<Signature on File>>
[2023-06-14 10:00] VITALS: BP 124/70
== END 2023-06-14 23:59 | disposition home or self-care (01) ==
PROVIDERS: Internal Medicine Medical Oncology; Nurse Practitioner Family; PCP Family Medicine; Visit Provider Radiology Radiation Oncology
DX: Z51.0 Encounter for antineoplastic radiation therapy (principal); Z53.9 Procedure and treatment not carried out, unspecified reason; C09.9 Malignant neoplasm of tonsil, unspecified; Z79.899 Other long term (current) drug therapy
CPT/HCPCS: 36591; 77336; 77386; 80053; 85025; 96360; 96365; 96366; 96367; 96372; 96374; 96375; 96401; 96413; 99214; J1100; J1200; J1453; J1642; J1940; J2469; J3475; J3480; J3490; J7030; J7040; J7050; J9060; Q5101

== ENCOUNTER 2023-06-15 08:05 | Oncology outpatient (recurring) (ONCR) | payer OTHER, SELFPAY ==
[2023-06-15] MEDS: filgrastim-sndz 480 mcg/0.8 mL Syringe SUBCUT (08:35)
[2023-06-15 08:44] VITALS: BP 105/73; PULSE 84; RESP 16; TEMP 36.3; O2SAT 97
== END 2023-07-04 23:59 | disposition home or self-care (01) ==
LOC: ONCMED 08:05
PROVIDERS: PCP Family Medicine; Visit Provider Radiology Radiation Oncology
DX: C09.9 Malignant neoplasm of tonsil, unspecified
CPT/HCPCS: 96372; Q5101

== ENCOUNTER 2023-07-17 11:13 | Oncology outpatient (recurring) (ONCR) | payer OTHER, SELFPAY ==
[2023-07-17 11:39] LABS: Basophils % 1.1 %; Eosinophils # 0.1 10^3/uL (0.0-0.8); Eosinophils % 1.8 %; Hematocrit 41.7 % (37-53); Lymphocytes # 1.5 10^3/uL (0.8-4.8); Mean Corpuscular HGB Conc 33.1 g/dL (30-55); Mean Corpuscular Hemoglobin 29.9 pg (27-33); Mean Corpuscular Volume 90.5 fl (82-101); Mean Platelet Volume 9.1 fL (7.4-10.4); Monocytes # 0.3 10^3/uL (0.2-0.9); Monocytes % 11.4 %; Neutrophils % 32.7 %; Nucleated Red Blood Cells % 0 %; Platelet Count 270 10^3/cmm (157-399); Red Blood Count 4.61 10^6/uL (3.85-5.65); White Blood Count 2.81 10^3/uL (3.29-11.43)
[2023-07-17 11:45] LABS: Neutrophils # 0.92 10^3/uL (1.8-7.7)
[2023-07-17 12:10] LABS: Alanine Aminotransferase 15 U/L (0-41); Albumin Level 4.4 g/dL (3.5-5.2); Alkaline Phosphatase 96 U/L (40-130); Anion Gap 14.5 (5-19); Aspartate Amino Transferase 14 U/L (0-40); Blood Urea Nitrogen 22 mg/dL (6-20); Calcium 9.4 mg/dL (8.5-10.5); Carbon Dioxide 25 mmol/L (22-29); Chloride 103 mmol/L (98-107); Globulin 3.2 g/dL (1.3-4.6); Glucose 100 mg/dL (65-115); Osmolality Calculated 289 mOsm/kg (285-295); Potassium 4.5 mmol/L (3.5-5.1); Sodium 138 mmol/L (136-145); Thyroid Stimulating Hormone 2.56 uIU/mL (0.27-4.20); Total Bilirubin 0.4 mg/dL (0.15-1.2); Total Protein 7.6 g/dL (6.6-8.7)
--- NOTE | 2023-07-17 12:21 | PC.NURSE ---
1200- Critical ANC 0.92 reported to Rodri Hernandez, nurse with Dr. Gupta. Patient has follow up office visit at 1300 today. Copy of CBC lab report given to Rodri Hernandez, for review upon office visit. - RODRI Baca
--- NOTE | 2023-07-17 12:35 | ONCRAD EPV_ITS ---
Radiation Oncology Established Patient Visit Patient: Violette Isabel [id number] : 1965> Age: 57> Sex: Male> Dictated by: Dr. Shelby Vieira Date of Service: 07/17/2023 Referring Physician(s) : Patient returns today for his 1 month follow-up. He has dropped an additional 7 pounds. He says his appetite is returning. His taste is slowly improving. His energy level however is hit and miss. He also describes a spot mid humerus on the right side that is tender when he lays back in the bed. 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 ID: [id number], Energy: 6X, Dose/Fx (cGy): 200, #Fx: 30 / 30, Dose Correction (cGy): 0, Total Dose Delivered (cGy): 6,000, Start Date: 05/01/2023, End Date: 06/14/2023, Elapsed Days: 44, Current History: Current Complaints / Review of Systems: . Vital Signs: Performed on 07/17/2023 11:37 AM BMI - 28.289 kg/m2 (high), Height - 76 in, Weight - 232.4 lbs, Temperature - 97 f, Pulse - 87 /min, Respiration - 18 /min, O2 Sat - 93 % (low), Pain - 2, Fatigue - 0 and BP - 123/ 88 mm(hg). Physical Exam: General: Alert and oriented x 3. No acute distress. HEENT: Normocephalic, atraumatic. Extraocular Movements Intact: Pupils Equal, Round, Reactive to Light. Oral cavity is clear without lesions, masses or ulcers. He has notable scar tissue along the right anterior tonsillar pillar NECK: Supple without supraclavicular or jugular lymphadenopathy. LUNGS: Respiratory rate is regular nonlabored. HEART: Regular rate and rhythm,. MUSCULOSKELETAL: No gross musculoskeletal abnormalities noted ABDOMEN: Abdomen is fairly flat EXTREMITIES: No peripheral edema is identified. NEUROLOGIC: Alert and orient x 3. Gait and speech within normal limits. Performance Status: kps 100 Lab: None pending. Pathology: Primary, c09.9 - malignant neoplasm of tonsil, unspecified, Diagnosed 01/03/2023 (active) . 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 Gupta later today. He has a CAT scan at 430 today. At this point I gave him some suggestions on different things he can do to help with his energy level. I recommended that he start a complete B vitamin, carnitine, co-Q10, and vitamin D. We talked about these are the supplements that will help with the cellular level with his energy production. We also talked about holding off from returning to work for another month or 2 until he is back to 100%. I reassured him that losing 7 pounds was normal for what he had been through. That he is actually doing quite well. I will see him back coordinating with his next medical oncology appointment Signed by: 07/17/2023 12:32:53 PM <<Signature on File>> Time spent with patient: CPT Code: CPT Code:
== END 2023-08-02 23:59 | disposition home or self-care (01) ==
PROVIDERS: Nurse Practitioner Family; PCP Family Medicine; Visit Provider Radiology Radiation Oncology
DX: C09.9 Malignant neoplasm of tonsil, unspecified (principal); Z95.828 Presence of other vascular implants and grafts; R93.0 Abnormal findings on diagnostic imaging of skull and head, not elsewhere classified; Z87.891 Personal history of nicotine dependence; Z90.89 Acquired absence of other organs; Z90.09 Acquired absence of other part of head and neck; Z92.21 Personal history of antineoplastic chemotherapy; Z92.3 Personal history of irradiation; Z79.899 Other long term (current) drug therapy
CPT/HCPCS: 36591; 70491; 80053; 84443; 85025; 99024; 99214; Q9967

== ENCOUNTER 2023-07-17 15:51 | Outpatient (CLI) | payer OTHER, SELFPAY ==
--- NOTE | 2023-07-17 15:58 | CT_ITS ---
WS: [id number] CT NECK TECHNIQUE: Contrast-enhanced CT of the neck with coronal and sagittal reformatted images. CLINICAL INFORMATION: MALIGNANT NEOPLASM OF TONSILLAR FOSSA COMPARISON: CT 10/31/2022 and PET/CT 01/20/2023 DLP: 231.[address] scans at [facility] use at least one of these dose optimization techniques: automated e xposure control; mA and/or kV adjustment per patient size (includes targeted exams where dose is matc hed to clinical indication); or iterative reconstruction. FINDINGS: Interval treatment related changes RIGHT tonsillar neoplasm. Interval decrease in size and resolution of the RIGHT tonsillar enhancing mass previously described. No evidence of residual or progressed to nsillar mass. Prominent 9 mm lymph node posterior to the angle of the mandible on the RIGHT appears stable compared to the prior neck CT 10/31/2022. This demonstrated low grade FDG activity on the prior PET/CT. Additi onal enlarged RIGHT cervical lymph nodes have resolved. Treatment-related changes RIGHT neck with thi ckening of the platysma. Parotid glands are normal. Normal submandibular glands. Normal posterior oropharynx and hypopharynx. Normal parapharyngeal fat. Normal thyroid gland. Lung apices are well aerated. Mild spondylitic garza es cervical spine. IMPRESSION: 1. Suspicious enhancing 9 mm lymph node at the angle of the mandible in the RIGHT appears stable com pared to the prior studies and demonstrated low-grade FDG activity on the prior PET/CT. Consider foll ow-up PET/CT for comparison. Findings suspicious for residual disease in this location. 2. Resolution of the previously described RIGHT tonsillar mass. No evidence of residual or recurrent RIGHT tonsillar mass. 3. Additional FDG avid RIGHT cervical lymphadenopathy has resolved. 4. Treatment-related changes RIGHT neck with thickening of the platysma.
[2023-07-17] MEDS: iohexol 350 mg/mL 500 mL Btl (per mL) IV (16:16)
== END 2023-07-17 15:52 | disposition home or self-care (01) ==
LOC: RAD 15:51
PROVIDERS: PCP Family Medicine; Visit Provider Specialist
DX: C09.0 Malignant neoplasm of tonsillar fossa (principal); R93.0 Abnormal findings on diagnostic imaging of skull and head, not elsewhere classified; Z87.891 Personal history of nicotine dependence; Z90.89 Acquired absence of other organs; Z90.09 Acquired absence of other part of head and neck; Z92.21 Personal history of antineoplastic chemotherapy; Z92.3 Personal history of irradiation
CPT/HCPCS: 70491; 99214; Q9967

== ENCOUNTER 2023-09-04 09:32 | Outpatient (CLI) | payer OTHER, SELFPAY ==
--- NOTE | 2023-09-04 09:41 | PETR_ITS ---
PROCEDURE INFORMATION: Exam: PET/CT Skull Base to Mid-thigh Exam date and time: 09/04/2023 10:34 AM Age: 57 years old Clinical indication: Condition or disease; Primary cancer: Malignant neoplasm tonsils; Prior surgery; Surgery date: 6+ months; Surgery type: Tonsils, lymph nodes LABS AND CLINICAL REPORTS: Glucose: 108 mg/dl Treatment strategy for malignancy (PET staging): PS: Restaging. TECHNIQUE: Imaging protocol: Following at least four-hour fasting and following the injection of radiopharmaceutical, low dose CT images were obtained. Then, PET images were obtained. Attenuation corrected images were constructed using the CT scan. Fused images of PET and CT were reviewed. The standardized uptake values (SUV) reported below are maximum values within a region of interest, expressed in gm/ml. Exam includes orbital meatal line to mid-thigh. Radiopharmaceutical: 13.35 mCi F-18 FDG (Fluorodeoxyglucose), IV. Time of imaging post radiopharmaceutical administration: 1 hour COMPARISON: PT PET [facility] [id number] 01/20/2023 12:05 PM FINDINGS: Tubes, catheters and devices: Right IJ Port-A-Cath terminates at the superior cavoatrial junction. Brain: Visualized brain has normal physiologic uptake. Oral cavity: Mild FDG uptake is seen along the right base of the tongue with SUV max 3.3, significantly decreased from prior (SUV max previously 12.6). Pharynx: No abnormal uptake. Larynx: No abnormal uptake. Lungs, pleura and trachea: No abnormal uptake. Heart: Normal physiologic uptake. Mediastinal space: No abnormal uptake. Liver: No abnormal uptake. Gallbladder and bile ducts: No abnormal uptake. Pancreas: No abnormal uptake. Spleen: No abnormal uptake. Adrenal glands: No abnormal uptake. Kidneys and ureters: Normal physiologic uptake. Stomach and bowel: No abnormal uptake. Intraperitoneal and retroperitoneal spaces: Similar nonspecific mesenteric edema in the central abdomen. Vasculature: No abnormal uptake. Lymph nodes: Increased FDG uptake within partially calcified mediastinal lymph nodes with SUV max 3.7, previously 3.1. Bones/joints: No abnormal uptake in the visualized axial and appendicular skeleton. Soft tissues: Surgical clips in the right aspect of the neck. PET/PET [facility] [id number] IMPRESSION: 1. Mild FDG uptake is seen along the right base of the tongue with SUV max 3.3, significantly decreased from prior. This is favored to reflect post treatment change, though some residual disease is difficult to exclude. 2. Increased FDG uptake within partially calcified mediastinal lymph nodes, favored to be reactive or sequela of granulomatous disease, though attention on follow-up is recommended.
== END 2023-09-04 09:33 | disposition home or self-care (01) ==
LOC: RAD 09:33
PROVIDERS: PCP Family Medicine; Visit Provider Specialist
DX: C09.0 Malignant neoplasm of tonsillar fossa (principal); C09.8 Malignant neoplasm of overlapping sites of tonsil
CPT/HCPCS: 78815; A9552

== ENCOUNTER 2023-10-15 10:53 | Oncology outpatient (recurring) (ONCR) | payer OTHER, SELFPAY ==
[2023-10-15 11:47] LABS: Basophils % 1.7 %; Eosinophils # 0.1 10^3/uL (0.0-0.8); Eosinophils % 4.2 %; Hematocrit 43.9 % (37-53); Lymphocytes # 1.7 10^3/uL (0.8-4.8); Lymphocytes % 68.8 %; Mean Corpuscular Hemoglobin 29.7 pg (27-33); Mean Corpuscular Volume 89.8 fl (82-101); Mean Platelet Volume 9.3 fL (7.4-10.4); Monocytes # 0.4 10^3/uL (0.2-0.9); Monocytes % 17.1 %; Neutrophils % 8.2 %; Nucleated Red Blood Cells % 0 %; Platelet Count 262 10^3/cmm (157-399); Red Blood Count 4.89 10^6/uL (3.85-5.65); Red Cell Distribution Width 12.6 % (12.1-15.1)
[2023-10-15 12:10] LABS: Alanine Aminotransferase 21 U/L (0-41); Albumin Level 4.3 g/dL (3.5-5.2); Alkaline Phosphatase 99 U/L (40-130); Anion Gap 11.4 (5-19); Aspartate Amino Transferase 19 U/L (0-40); Blood Urea Nitrogen 19 mg/dL (6-20); Calcium 9.2 mg/dL (8.5-10.5); Carbon Dioxide 24 mmol/L (22-29); Chloride 105 mmol/L (98-107); Creatinine Clr Calc Pharmacy 120.0065; Globulin 3.5 g/dL (1.3-4.6); Glomerular Filtration Rate 86.7 mL/min (90-130); Glucose 95 mg/dL (65-115); Osmolality Calculated 284 mOsm/kg (285-295); Potassium 4.4 mmol/L (3.5-5.1); Sodium 136 mmol/L (136-145); Total Bilirubin 0.3 mg/dL (0.15-1.2); Total Protein 7.8 g/dL (6.6-8.7)
== END 2023-11-02 23:59 | disposition home or self-care (01) ==
PROVIDERS: Nurse Practitioner Family; PCP Family Medicine; Visit Provider Radiology Radiation Oncology
DX: C09.9 Malignant neoplasm of tonsil, unspecified (principal); Z87.891 Personal history of nicotine dependence; Z92.3 Personal history of irradiation; Z92.21 Personal history of antineoplastic chemotherapy; Z95.828 Presence of other vascular implants and grafts
CPT/HCPCS: 36591; 80053; 84443; 85025; 99213

== ENCOUNTER 2023-11-13 15:23 | Oncology outpatient (recurring) (ONCR) | payer OTHER, SELFPAY | END 2023-12-02 23:59 | disposition home or self-care (01) | LOC: ONCMED 15:23 | PROVIDERS: PCP Family Medicine; Visit Provider Radiology Radiation Oncology | DX: C09.9 Malignant neoplasm of tonsil, unspecified (principal); Z87.891 Personal history of nicotine dependence; Z92.3 Personal history of irradiation; Z92.21 Personal history of antineoplastic chemotherapy; Z95.828 Presence of other vascular implants and grafts | CPT/HCPCS: 96523 ==

== ENCOUNTER → 2023-11-14 14:30 | Outpatient (BNVA) | payer OTHER, SELFPAY | PROVIDERS: PCP Family Medicine; Visit Provider Surgery | DX: Z95.828 Presence of other vascular implants and grafts (principal) | CPT/HCPCS: 99214 ==

== ENCOUNTER → 2024-01-09 10:25 | Outpatient (BNVA) | payer OTHER, SELFPAY | PROVIDERS: PCP Family Medicine; Visit Provider Surgery | DX: C09.9 Malignant neoplasm of tonsil, unspecified (principal) | CPT/HCPCS: 99213 ==

== ENCOUNTER 2024-01-09 13:47 | Oncology outpatient (recurring) (ONCR) | payer OTHER, SELFPAY ==
[2024-01-09 14:08] LABS: Basophils % 1.5 %; Eosinophils # 0.2 10^3/uL (0.0-0.8); Eosinophils % 5.9 %; Hematocrit 39.5 % (37-53); Lymphocytes # 1.8 10^3/uL (0.8-4.8); Lymphocytes % 66.9 %; Mean Corpuscular HGB Conc 32.9 g/dL (30-55); Mean Corpuscular Hemoglobin 30.6 pg (27-33); Mean Corpuscular Volume 92.9 fl (82-101); Mean Platelet Volume 8.9 fL (7.4-10.4); Monocytes # 0.5 10^3/uL (0.2-0.9); Monocytes % 18.2 %; Neutrophils % 6.8 %; Nucleated Red Blood Cells % 0 %; Platelet Count 273 10^3/cmm (157-399); Red Blood Count 4.25 10^6/uL (3.85-5.65); Red Cell Distribution Width 14.9 % (12.1-15.1); White Blood Count 2.69 10^3/uL (3.29-11.43)
[2024-01-09 14:26] LABS: Alanine Aminotransferase 18 U/L (0-41); Albumin Level 4.4 g/dL (3.5-5.2); Alkaline Phosphatase 85 U/L (40-130); Anion Gap 13.8 (5-19); Aspartate Amino Transferase 17 U/L (0-40); Blood Urea Nitrogen 25 mg/dL (6-20); Calcium 8.9 mg/dL (8.5-10.5); Carbon Dioxide 26 mmol/L (22-29); Chloride 105 mmol/L (98-107); Globulin 3.1 g/dL (1.3-4.6); Glomerular Filtration Rate 68.8 mL/min (90-130); Glucose 95 mg/dL (65-115); Osmolality Calculated 294 mOsm/kg (285-295); Potassium 4.8 mmol/L (3.5-5.1); Sodium 140 mmol/L (136-145); Total Bilirubin 0.4 mg/dL (0.15-1.2); Total Protein 7.5 g/dL (6.6-8.7)
[2024-01-09 14:34] LABS: Neutrophils # 0.18 10^3/uL (1.8-7.7)
== END 2024-02-02 23:55 | disposition home or self-care (01) ==
PROVIDERS: Nurse Practitioner Family; PCP Family Medicine; Visit Provider Radiology Radiation Oncology
DX: C09.9 Malignant neoplasm of tonsil, unspecified (principal); D70.9 Neutropenia, unspecified
CPT/HCPCS: 36415; 80053; 85025; 99214

== ENCOUNTER → 2024-01-21 09:43 | Outpatient (BNVA) | payer OTHER, SELFPAY | PROVIDERS: PCP Family Medicine; Visit Provider Specialist | DX: M17.12 Unilateral primary osteoarthritis, left knee (principal) | CPT/HCPCS: 73560; 73565; 99203; 99205 ==

== ENCOUNTER → 2024-03-07 08:47 | Outpatient (BNVA) | payer OTHER, SELFPAY | PROVIDERS: PCP Family Medicine; Visit Provider Specialist | DX: M17.12 Unilateral primary osteoarthritis, left knee (principal); Z87.828 Personal history of other (healed) physical injury and trauma; Z71.89 Other specified counseling | CPT/HCPCS: 20610; J7326 ==

== ENCOUNTER 2024-04-03 12:37 | Oncology outpatient (recurring) (ONCR) | payer OTHER, SELFPAY ==
--- NOTE | 2024-04-03 13:00 | CTR_ITS ---
PROCEDURE INFORMATION: Exam: CT Neck With Contrast Exam date and time: 04/03/2024 1:05 PM Age: 58 years old Clinical indication: Condition or disease; Other: Head and neck cancer; Prior surgery; Surgery date: 6+ months; Surgery type: Mass removed RT side of neck; Patient HX: HX of throat cancer with chemo TECHNIQUE: Imaging protocol: Computed tomography of the neck with contrast. Radiation optimization: All CT scans at this facility use at least one of these dose optimization techniques: automated exposure control; mA and/or kV adjustment per patient size (includes targeted exams where dose is matched to clinical indication); or iterative reconstruction. Contrast material: OMNI 350; Contrast volume: 100 ml; Contrast route: INTRAVENOUS (IV); COMPARISON: PT PET skull to thigh INIT [id number] 09/04/2023 10:34 AM RADIATION DOSE METRICS: Total DLP (mGy-cm): 943.99 FINDINGS: Salivary glands: Normal. Glands are normal in size. Oral cavity: Slightly increased soft tissue density at the base of the tongue on the right side, the site of prior abnormality but what remains may simply be fibrosis. No measurable mass. Pharynx: Unremarkable. No significant tonsillar enlargement. Prevertebral and retropharyngeal spaces: Unremarkable. Larynx: Unremarkable. Epiglottis is normal. Thyroid: Normal. No enlarged or calcified nodules. Trachea: Visualized trachea is unremarkable. Lungs: Unremarkable as visualized. Lymph nodes: Unremarkable. No lymphadenopathy. Bones/joints: Unremarkable. No acute fracture. Soft tissues: Unremarkable. No significant soft tissue swelling. CT/CT neck w con* [id number] IMPRESSION: Mildly increased soft tissue density near the base of the tongue on the right side.
[2024-04-03] MEDS: iohexol 350 mg/mL 500 mL Btl (per mL) IV (13:16)
--- NOTE | 2024-04-03 13:30 | CTR_ITS ---
PROCEDURE INFORMATION: Exam: CT Chest With Contrast; Diagnostic Exam date and time: 04/03/2024 1:05 PM Age: 58 years old Clinical indication: Condition or disease; Other: Head and neck cancer; Prior surgery; Surgery date: 6+ months; Surgery type: Mass removed RT side of neck; Patient HX: Throat cancer with chemo TECHNIQUE: Imaging protocol: Diagnostic computed tomography of the chest with contrast. Radiation optimization: All CT scans at this facility use at least one of these dose optimization techniques: automated exposure control; mA and/or kV adjustment per patient size (includes targeted exams where dose is matched to clinical indication); or iterative reconstruction. Contrast material: OMNI 350; Contrast volume: 100 ml; Contrast route: INTRAVENOUS (IV); COMPARISON: PT PET skull to thigh INIT [id number] 09/04/2023 10:34 AM RADIATION DOSE METRICS: Total DLP (mGy-cm): 943.99 FINDINGS: Lungs: Bibasilar atelectasis noted. No infiltrate. Pleural spaces: Unremarkable. No pneumothorax. No pleural effusion. Heart: There is mild cardiomegaly. Lymph nodes: Calcified mediastinal and hilar lymph nodes are noted. Vasculature: Unremarkable. No aortic aneurysm. Diaphragm: There is elevation of the right hemidiaphragm possibly paralysis of the right hemidiaphragm. This is unchanged. Bones/joints: Old transverse process fractures of the upper thoracic spine incidentally noted. Soft tissues: Unremarkable. CT/CT chest w con* [id number] IMPRESSION: 1. No acute findings. 2. There is elevation of the right hemidiaphragm possibly paralysis of the right hemidiaphragm. This is unchanged.
== END 2024-04-03 23:59 | disposition home or self-care (01) ==
LOC: RAD 12:38 → ONCMED 15:34
PROVIDERS: PCP Family Medicine; Visit Provider Internal Medicine Medical Oncology
DX: C09.9 Malignant neoplasm of tonsil, unspecified (principal); D70.9 Neutropenia, unspecified; Z87.891 Personal history of nicotine dependence; Z92.3 Personal history of irradiation; Z92.21 Personal history of antineoplastic chemotherapy; Z95.828 Presence of other vascular implants and grafts; Z45.2 Encounter for adjustment and management of vascular access device
CPT/HCPCS: 70491; 71260

== ENCOUNTER 2024-04-14 15:30 | Oncology outpatient (recurring) (ONCR) | payer OTHER, SELFPAY ==
[2024-04-10 13:45] LABS: Basophils # 0.1 10^3/uL (0.0-0.1); Basophils % 2.1 %; Eosinophils # 0.1 10^3/uL (0.0-0.8); Eosinophils % 5.6 %; Lymphocytes # 1.5 10^3/uL (0.8-4.8); Lymphocytes % 63.1 %; Mean Corpuscular Hemoglobin 29.4 pg (27-33); Monocytes # 0.4 10^3/uL (0.2-0.9); Neutrophils % 14.2 %; Nucleated Red Blood Cells % 0 %; Platelet Count 350 10^3/cmm (157-399); Red Blood Count 4.35 10^6/uL (3.85-5.65); Red Cell Distribution Width 13.6 % (12.1-15.1); White Blood Count 2.33 10^3/uL (3.29-11.43)
[2024-04-10 14:09] LABS: Alanine Aminotransferase 20 U/L (0-41); Albumin Level 4.2 g/dL (3.5-5.2); Alkaline Phosphatase 87 U/L (40-130); Anion Gap 15.4 (5-19); Aspartate Amino Transferase 19 U/L (0-40); Blood Urea Nitrogen 20 mg/dL (6-20); Calcium 8.6 mg/dL (8.5-10.5); Carbon Dioxide 24 mmol/L (22-29); Chloride 105 mmol/L (98-107); Creatinine Clr Calc Pharmacy 120.5476; Globulin 2.9 g/dL (1.3-4.6); Glomerular Filtration Rate 86.7 mL/min (90-130); Glucose 97 mg/dL (65-115); Osmolality Calculated 293 mOsm/kg (285-295); Potassium 4.4 mmol/L (3.5-5.1); Sodium 140 mmol/L (136-145); Thyroid Stimulating Hormone 5.63 uIU/mL (0.27-4.20); Total Bilirubin 0.3 mg/dL (0.15-1.2); Total Protein 7.1 g/dL (6.6-8.7)
[2024-04-10 14:22] LABS: Neutrophils # 0.33 10^3/uL (1.8-7.7)
== END 2024-05-03 23:59 | disposition home or self-care (01) ==
PROVIDERS: PCP Family Medicine; Visit Provider Internal Medicine Medical Oncology
DX: C09.9 Malignant neoplasm of tonsil, unspecified (principal); D70.9 Neutropenia, unspecified; R53.83 Other fatigue; Z87.891 Personal history of nicotine dependence; Z92.3 Personal history of irradiation
CPT/HCPCS: 36415; 80053; 84443; 85025; 99213; 99214

== ENCOUNTER 2024-06-18 11:55 | Oncology outpatient (recurring) (ONCR) | payer OTHER, SELFPAY ==
[2024-06-18 12:23] LABS: Basophils % 1.5 %; Eosinophils # 0.2 10^3/uL (0.0-0.8); Eosinophils % 6.6 %; Hematocrit 39.1 % (37-53); Lymphocytes # 1.6 10^3/uL (0.8-4.8); Lymphocytes % 56.9 %; Mean Corpuscular HGB Conc 32.7 g/dL (30-55); Mean Corpuscular Hemoglobin 29.4 pg (27-33); Mean Corpuscular Volume 89.9 fl (82-101); Mean Platelet Volume 9.1 fL (7.4-10.4); Monocytes # 0.8 10^3/uL (0.2-0.9); Monocytes % 29.9 %; Neutrophils % 5.1 %; Nucleated Red Blood Cells % 0 %; Platelet Count 292 10^3/cmm (157-399); Red Blood Count 4.35 10^6/uL (3.85-5.65); Red Cell Distribution Width 12.9 % (12.1-15.1); White Blood Count 2.74 10^3/uL (3.29-11.43)
[2024-06-18 12:35] LABS: Neutrophils # 0.14 10^3/uL (1.8-7.7)
[2024-06-18 12:58] LABS: Alanine Aminotransferase 12 U/L (0-41); Alkaline Phosphatase 93 U/L (40-130); Anion Gap 16.8 (5-19); Aspartate Amino Transferase 12 U/L (0-40); Blood Urea Nitrogen 21 mg/dL (6-20); Calcium 9.1 mg/dL (8.5-10.5); Carbon Dioxide 23 mmol/L (22-29); Chloride 101 mmol/L (98-107); Creatinine Clr Calc Pharmacy 120.3178; Free T4 Free Thyroxine 1.48 ng/dL (0.82-1.77); Globulin 3.2 g/dL (1.3-4.6); Glomerular Filtration Rate 86.7 mL/min (90-130); Glucose 104 mg/dL (65-115); Osmolality Calculated 285 mOsm/kg (285-295); Potassium 4.8 mmol/L (3.5-5.1); Sodium 136 mmol/L (136-145); T3 Free 2.6 PG/ML (2.0-4.4); Thyroid Stimulating Hormone 2.97 uIU/mL (0.27-4.20); Total Bilirubin 0.4 mg/dL (0.15-1.2); Total Protein 7.2 g/dL (6.6-8.7)
== END 2024-07-04 23:59 | disposition home or self-care (01) ==
PROVIDERS: Internal Medicine Medical Oncology; PCP Family Medicine; Visit Provider Internal Medicine
DX: C09.8 Malignant neoplasm of overlapping sites of tonsil (principal); Z87.891 Personal history of nicotine dependence; Z92.3 Personal history of irradiation; D70.1 Agranulocytosis secondary to cancer chemotherapy; T45.1X5A Adverse effect of antineoplastic and immunosuppressive drugs, initial encounter; Z79.899 Other long term (current) drug therapy
CPT/HCPCS: 36415; 80053; 84439; 84443; 84481; 85025; 99214

== ENCOUNTER 2024-06-19 16:41 | Outpatient (CLI) | payer OTHER, SELFPAY ==
--- NOTE | 2024-06-19 16:47 | CT_ITS ---
WS: [id number] CT NECK TECHNIQUE: Contrast-enhanced CT of the neck with coronal and sagittal reformatted images. CLINICAL INFORMATION: MALIGNANT NEOPLASM OF OVERLAPPING SITES OF TONSIL. History of treated tonsillar neoplasm. COMPARISON: CT neck 04/03/2024 DLP: 259.[address] scans at [facility] use at least one of these dose optimization techniques: automated e xposure control; mA and/or kV adjustment per patient size (includes targeted exams where dose is matc hed to clinical indication); or iterative reconstruction. FINDINGS: Parotid glands are normal. Treatment-related changes RIGHT neck. Treatment-related changes involving the RIGHT submandibular space and RIGHT sternocleidomastoid. Surgical clips in this area with postope rative changes. LEFT submandibular gland is normal. Fatty atrophy of the RIGHT submandibular gland. M astoid air cells are well aerated. Paranasal sinuses are well aerated. Normal posterior nasopharynx. Normal parapharyngeal fat. No evidence of supraglottic or glottic mass. Normal subglottic airway. Atr ophic thyroid gland. Lung apices are well aerated. Both ICAs are patent. Tongue base appears normal. Some images degraded by dental artifact. Normal epiglottis. Normal vallecula and piriform sinuses. Normal glottis. No cerv ical lymphadenopathy. No other suspicious findings. Mild spondylitic changes cervical spine. CT/CT neck w con* [id number] IMPRESSION: 1. Prior postoperative changes RIGHT neck with treatment related changes for t onsillar neoplasm. 2. No new suspicious findings today. 3. No evidence of supraglottic or glottic mass. 4. No cervical lymphadenopathy.
[2024-06-19] MEDS: iohexol 350 mg/mL 500 mL Btl (per mL) IV (17:16)
== END 2024-06-19 16:42 | disposition home or self-care (01) ==
LOC: RAD 16:42
PROVIDERS: PCP Family Medicine; Visit Provider Specialist
DX: C09.8 Malignant neoplasm of overlapping sites of tonsil (principal); Z98.890 Other specified postprocedural states; E03.4 Atrophy of thyroid (acquired); M46.82 Other specified inflammatory spondylopathies, cervical region; K11.0 Atrophy of salivary gland
CPT/HCPCS: 70491

== ENCOUNTER 2024-08-27 15:29 | Oncology outpatient (recurring) (ONCR) | payer OTHER, SELFPAY ==
[2024-08-27 15:57] LABS: Basophils % 1.1 %; Eosinophils # 0.2 10^3/uL (0.0-0.8); Eosinophils % 6.9 %; Hematocrit 37.6 % (37-53); Lymphocytes # 1.5 10^3/uL (0.8-4.8); Lymphocytes % 54.5 %; Mean Corpuscular HGB Conc 32.4 g/dL (30-55); Mean Corpuscular Hemoglobin 28.9 pg (27-33); Mean Corpuscular Volume 89.1 fl (82-101); Mean Platelet Volume 9.2 fL (7.4-10.4); Monocytes # 0.9 10^3/uL (0.2-0.9); Monocytes % 32.5 %; Nucleated Red Blood Cells % 0 %; Platelet Count 292 10^3/cmm (157-399); Red Blood Count 4.22 10^6/uL (3.85-5.65); Red Cell Distribution Width 13.5 % (12.1-15.1); White Blood Count 2.77 10^3/uL (3.29-11.43)
[2024-08-27 16:11] LABS: Alanine Aminotransferase 12 U/L (0-41); Albumin Level 4.1 g/dL (3.5-5.2); Alkaline Phosphatase 82 U/L (40-130); Anion Gap 16.2 (5-19); Aspartate Amino Transferase 16 U/L (0-40); Blood Urea Nitrogen 21 mg/dL (6-20); Calcium 8.8 mg/dL (8.5-10.5); Carbon Dioxide 22 mmol/L (22-29); Chloride 99 mmol/L (98-107); Globulin 3.6 g/dL (1.3-4.6); Glomerular Filtration Rate 99.3 mL/min (90-130); Glucose 93 mg/dL (65-115); Osmolality Calculated 279 mOsm/kg (285-295); Potassium 4.2 mmol/L (3.5-5.1); Sodium 133 mmol/L (136-145); Total Bilirubin 0.4 mg/dL (0.15-1.2); Total Protein 7.7 g/dL (6.6-8.7)
[2024-08-27 16:41] LABS: Neutrophils # 0.14 10^3/uL (1.8-7.7)
[2024-08-27 18:16] LABS: Influenza A NEGATIVE (Negative); Influenza B NEGATIVE (Negative); Respiratory Syncytial Virus Ce NEGATIVE (Negative); SARS-CoV-2 PCR NEGATIVE (Negative)
== END 2024-09-01 23:59 | disposition home or self-care (01) ==
PROVIDERS: Nurse Practitioner Family; PCP Family Medicine; Visit Provider Internal Medicine
DX: C09.9 Malignant neoplasm of tonsil, unspecified (principal); D70.9 Neutropenia, unspecified; Z90.89 Acquired absence of other organs; Z79.2 Long term (current) use of antibiotics; R21 Rash and other nonspecific skin eruption; R53.83 Other fatigue; R50.9 Fever, unspecified; J02.9 Acute pharyngitis, unspecified; R63.4 Abnormal weight loss; Z79.899 Other long term (current) drug therapy; Z92.3 Personal history of irradiation; Z92.21 Personal history of antineoplastic chemotherapy
CPT/HCPCS: 36415; 80053; 85025; 87637; 99214

== ENCOUNTER 2024-09-05 07:33 | Oncology outpatient (recurring) (ONCR) | payer OTHER, SELFPAY ==
--- NOTE | 2024-09-05 08:00 | CT_ITS ---
WS: [id number] CT chest w con* [id number] HISTORY: fevers x 1 month with Abx use TECHNIQUE: Axial imaging performed through the thorax. Coronal and sagittal reformats are submitted. All CT scans at [facility] use at least one of these dose optimization techniques: automated exposure control; mA and/or kV adjustment per patient size (includes targeted exams where dose is matched to clinical indication); or iterative reconstruction. CONTRAST: Omnipaque 350; 100 mL IV. DLP: 989.50 mGy.cm COMPARISON: 04/03/2024 Lungs and central airway: Lungs are clear and well aerated. No pulmonary mass or nodule. No pneumonia. Pleura: Normal. No pleural effusion. Heart and pericardium: Normal size heart with no pericardial effusion. Mediastinum and georgina: No mediastinum or hilar adenopathy. There are a few small benign calcified lymph nodes. Vessels: Normal size aorta and pulmonary artery. Chest wall and lower neck: No soft tissue masses. Upper abdomen: Stomach is markedly distended with food products. Small benign liver calcification. Portal vein is normal. Gallbladder is negative. No adrenal mass. There is mild central mesenteric stranding and a few small lymph nodes which were also noted on the prior PET/CT from 09/04/2023. Osseous structures: No destructive process. CT/CT chest w con* [id number] IMPRESSION: 1. No pulmonary mass, nodule or pneumonia. 2. No mediastinal or hilar adenopathy. 3. Normal size heart.
[2024-09-05] MEDS: iohexol 350 mg/mL 500 mL Btl (per mL) IV ×2 (08:06→08:07)
--- NOTE | 2024-09-05 08:30 | CT_ITS ---
WS: [id number] CT NECK TECHNIQUE: Contrast-enhanced CT of the neck with coronal and sagittal reformatted images. CLINICAL INFORMATION: fevers x 1 month with Abx use COMPARISON: CT neck 06/19/2024 DLP: 989.[address] scans at [facility] use at least one of these dose optimization techniques: automated exposure control; mA and/or kV adjustment per patient size (includes targeted exams where dose is matched to clinical indication); or iterative reconstruction. FINDINGS: Parotid glands are normal. Normal LEFT submandibular gland. Fatty atrophy of the RIGHT submandibular gland. No cervical lymphadenopathy. Treatment-related changes RIGHT neck for tonsillar neoplasm. Surgical clips with postoperative changes. No evidence of supraglottic or glottic mass. Normal parapharyngeal fat. No evidence of supraglottic or glottic mass. Normal subglottic airway. Atrophic thyroid gland. Mastoid air cells are well aerated. Paranasal sinuses are well aerated. Normal posterior nasopharynx. Mild spondylitic changes cervical spine. CT/CT neck w con* [id number] IMPRESSION: 1. No new neck findings today. 2. Prior postoperative changes RIGHT neck with treatment-related changes for p reviously described tonsillar neoplasm. 3. No evidence of supraglottic or glottic mass. 4. No cervical lymphadenopathy.
== END 2024-10-01 23:59 | disposition home or self-care (01) ==
LOC: RAD 07:35 → ONCMED 09-08 09:11
PROVIDERS: PCP Family Medicine; Visit Provider Nurse Practitioner Family
DX: C09.9 Malignant neoplasm of tonsil, unspecified (principal); R50.9 Fever, unspecified
CPT/HCPCS: 70491; 71260

== ENCOUNTER → 2024-09-12 07:38 | Outpatient (BNVA) | payer OTHER, SELFPAY | PROVIDERS: PCP Family Medicine; Visit Provider Specialist | DX: M17.12 Unilateral primary osteoarthritis, left knee (principal); Z87.828 Personal history of other (healed) physical injury and trauma | CPT/HCPCS: 20610; J7326 ==

== ENCOUNTER → 2025-03-20 07:47 | Outpatient (BNVA) | payer OTHER, SELFPAY | PROVIDERS: PCP Family Medicine; Visit Provider Specialist | DX: M17.12 Unilateral primary osteoarthritis, left knee (principal) | CPT/HCPCS: 20610; J7326 ==

== ENCOUNTER 2025-03-25 15:09 | Outpatient (CLI) | payer OTHER, SELFPAY ==
--- NOTE | 2025-03-25 15:15 | XR_ITS ---
WS: [id number] Chest 2 views, Clinical Data: MALIGNANT NEOPLASM TONSILLAR FOSSA Comparison: None. Findings: No nodules, masses or effusions are seen. The heart is normal. The pulmonary vascularity is not increased. No pneumonia or pneumothorax is seen. The diaphragms are flattened. XR/XR chest 2V* [id number] Impression: Hyperinflation.
== END 2025-03-25 15:10 | disposition home or self-care (01) ==
LOC: RAD 15:10
PROVIDERS: PCP Family Medicine; Visit Provider Specialist
DX: C09.0 Malignant neoplasm of tonsillar fossa (principal); J98.4 Other disorders of lung
CPT/HCPCS: 71046

== ENCOUNTER → 2025-05-18 15:24 | Outpatient (BNVA) | payer OTHER, SELFPAY | PROVIDERS: PCP Family Medicine; Visit Provider Specialist | DX: M17.11 Unilateral primary osteoarthritis, right knee (principal) | CPT/HCPCS: 20610; 73560; 73565; 99214; J1100; J2795; J3301; J9999 ==